=== PATIENT | female | born 1960 ===

== ENCOUNTER → 2020-10-03 12:36 | Outpatient (BNVA) | payer MEDICAID, SELFPAY | PROVIDERS: PCP Family Medicine; Visit Provider Nurse Practitioner Family | DX: M47.817 Spondylosis without myelopathy or radiculopathy, lumbosacral region (principal) | CPT/HCPCS: 99212 ==

== ENCOUNTER 2021-01-22 06:27 | Outpatient (REF) | payer MEDICAID, SELFPAY ==
--- NOTE | ~2021-01-22 | FL_ITS ---
EXAMINATION: XR FLUOROSCOPY WITH IMAGES CLINICAL INFORMATION: M47.817 - Spondylosis without myelopathy or radiculopathy COMPARISON: MRI lumbar spine 05/02/2020, radiographs lumbar spine 09/11/2016 TECHNIQUE: Fluoroscopy performed by Liya Maravilla NP. Fluoroscopy time: 0.7 minutes DAP: 11.6 Gycm2 Images: 6 FINDINGS: There are spinal needles overlying the bilateral outer neural foramen L3, L4, and L5. There is contrast seen in the nerve sheaths with some transforaminal epidural extension. No visible vascular communication. FL/FL guidance in treatment room IMPRESSION: Fluoroscopy for pain management procedures.
== END 2021-01-22 06:28 | disposition home or self-care (01) ==
LOC: HO.RADIR 06:27
PROVIDERS: Visit Provider Anesthesiology
DX: M47.817 Spondylosis without myelopathy or radiculopathy, lumbosacral region (principal)
CPT/HCPCS: 64493; 64494; Q9967

== ENCOUNTER → 2021-01-29 10:59 | Outpatient (BNVA) | payer MEDICAID, SELFPAY | PROVIDERS: PCP Family Medicine; Visit Provider Nurse Practitioner Family ==

== ENCOUNTER 2021-06-06 12:31 | Outpatient (REF) | payer MEDICAID, SELFPAY ==
--- NOTE | ~2021-06-06 | MM_ITS ---
EXAMINATION: MM SCREENING DIGITAL BREAST TOMOSYNTHESIS, BILATERAL CLINICAL INFORMATION: Screening. Asymptomatic. The lifetime risk of breast cancer based on the Tyrer-Cuzick Model is 4.4%. COMPARISON: Mammography: April 05, 2020 and studies dating back to April 19, 2014 TECHNIQUE: Digital breast tomosynthesis is performed in both the craniocaudal and mediolateral oblique views along with computer-aided detection (CAD). Synthesized 2D images are generated from the tomosynthesis. FINDINGS: There are scattered areas of fibroglandular density (ACR BI-RADS breast composition Category b). There are no significant masses, abnormal calcifications, or other abnormalities. MM/MM tomosynthesis screening BI IMPRESSION: There are no significant changes from prior study. ASSESSMENT: BI-RADS 1: Negative RECOMMENDATION: Routine annual mammography screening. This patient's information was entered into a reminder system with a target due date for their next mammogram.
== END 2021-06-06 12:32 | disposition home or self-care (01) ==
LOC: HO.MAMMO 12:31
PROVIDERS: Visit Provider Family Medicine
DX: Z12.31 Encounter for screening mammogram for malignant neoplasm of breast (principal)
CPT/HCPCS: 77063; 77067

== ENCOUNTER 2021-08-12 14:57 | Emergency (ER) | payer MEDICAID, SELFPAY ==
--- NOTE | ~2021-08-12 | XR_ITS ---
EXAMINATION: XR CHEST CLINICAL INFORMATION: Cough. COMPARISON: None TECHNIQUE: Frontal view of the chest was obtained. FINDINGS: No significant abnormality is noted involving the heart, lungs, mediastinum, bony thorax or soft tissues. XR/XR chest 1V IMPRESSION: Unremarkable chest examination.
[2021-08-12 15:01] VITALS: BP 175/96; PULSE 80; RESP 16; TEMP 36.7; O2SAT 98; BMI 37.0
--- NOTE | 2021-08-12 15:10 | ED.NAVMDI ---
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 Mode of arrival: EMS Limitations: no limitations History of Present Illness MD elicited complaint: nausea (body aches, cough) Pertinent past history: other (vaccinated x 1) Onset (ago): day(s) (2) Associated nausea: Yes Associated abdominal pain: No Location of pain: diffuse (has diffuse body aches) Radiation: diffuse Pain consistency: intermittent Severity: mild Quality: aching Exacerbating factors: none Relieving factors: none Associated symptoms: cough, loss of appetite, malaise, nausea/vomiting and weakness Related Data Home Medications Medication Instructions Recorded Confirmed abacavir 600 mg-lamivudine 300 mg 1 tab PO DAILY 10/03/20 10/03/20 tablet (Epzicom) aspirin 81 mg tablet,delayed 81 mg PO DAILY 10/03/20 10/03/20 release (Adult Aspirin Regimen) atorvastatin 40 mg tablet 40 mg PO BEDTIME 10/03/20 10/03/20 cholecalciferol (vitamin D3) 1,250 1,250 mcg PO QWEEK 10/03/20 10/03/20 mcg (50,000 unit) capsule clonazepam 0.5 mg tablet 0.5 mg PO DAILY 10/03/20 10/03/20 clonidine HCl 0.1 mg tablet 0.1 mg PO BEDTIME 10/03/20 10/03/20 duloxetine 60 mg capsule,delayed 60 mg PO BID 10/03/20 10/03/20 release (Cymbalta) glipizide 10 mg tablet 10 mg PO BID 10/03/20 10/03/20 lidocaine 5 % topical patch 1 patch TOPICAL DAILY 10/03/20 10/03/20 loratadine 10 mg capsule 10 mg PO DAILY 10/03/20 10/03/20 losartan 100 mg tablet 100 mg PO DAILY 10/03/20 10/03/20 melatonin 5 mg capsule 5 mg PO DAILY PRN cap 10/03/20 10/03/20 meloxicam 7.5 mg tablet 7.5 mg PO DAILY 10/03/20 10/03/20 metformin 500 mg tablet 500 mg PO BID 10/03/20 10/03/20 metoclopramide HCl 5 mg tablet 5 mg PO QIDACHS 10/03/20 10/03/20 (Reglan) metoprolol tartrate 25 mg tablet 25 mg PO BID 10/03/20 10/03/20 mirabegron 50 mg tablet,extended 50 mg PO DAILY 10/03/20 10/03/20 release 24 hr (Myrbetriq) oxybutynin chloride 15 mg 15 mg PO DAILY 10/03/20 10/03/20 tablet,extended release 24 hr pantoprazole 40 mg tablet,delayed 40 mg PO DAILY 10/03/20 10/03/20 release raltegravir 400 mg tablet 400 mg PO BID 10/03/20 10/03/20 (Isentress) verapamil 360 mg 24 hr 360 mg PO DAILY 10/03/20 10/03/20 capsule,extended release Previous Rx's Medication Instructions Recorded tolterodine 4 mg capsule,extended 4 mg PO BID 90 Days #180 cap 10/29/20 release 24 hr mirabegron 50 mg tablet,extended 50 mg PO DAILY #28 tab 01/15/21 release 24 hr (Myrbetriq) Allergies Allergy/AdvReac Type Severity Reaction Status Date / Time codeine [CODEINE] Allergy Intermediate DIZZY, Verified 01/22/21 11:11 itching Penicillins [PENICILLINS] Allergy Intermediate RASH Verified 01/22/21 11:11 Review of Systems Review of Systems: Constitutional : No Weight loss, No Fever, pos Chills, pos Fatigue, pos Malaise ENT/Mouth : No sore throat, No Rhinorrhea Eyes: No Eye Pain, No Swelling, No Redness Cardiovascular : No Chest Pain, No SOB, No Dyspnea on Exertion, No Orthopnea, No Edema, No Palpitations Respiratory : pos Cough, No Sputum, No Wheezing Gastrointestinal : pos Nausea, No Vomiting, No Diarrhea, No Constipation, No abdominal Pain, No Hematochezia, No Melena Genitourinary : No Dysuria, No Urinary Frequency, No Hematuria, Musculoskeletal : No joint pain, pos Myalgias, No Joint Swelling Skin : No Skin Lesions, No rash Neuro : pos Weakness, No Numbness, No Dizziness, No Headache Psych : No Anxiety/Panic, No Depression Heme/Lymph: No Bruising, No Bleeding,No Lymphadenopathy Endocrine : No Polyuria, No Polydipsia All other systems reviewed and are negative Gastrointestinal: Gastrointestinal: Reports nausea PMFSH Past Medical History Medical History HIV (human immunodeficiency virus infection) HTN (hypertension) Social History Social History Alcohol intake: unknown Patient Tobacco Use Status: Tobacco use Unknown Use of substances other than those prescribed or required for medical reasons: Unknown Advance Directives: No Advance Directives Information Provided: No Physical Exam Vital Signs: Vital Signs: Last Vital Signs Temp 99.2 F 08/12/21 19:12 Pulse 80 08/12/21 19:12 Resp 12 08/12/21 19:12 BP 175/93 H 08/12/21 19:12 Pulse Ox 97 08/12/21 19:12 BMI result Body Mass Index 37.0 Appearance: Alert. Oriented X3. No acute distress. Eyes: Pupils equal, round and reactive to light. ENT: Pharynx normal. Neck: Normal inspection. Neck supple. CVS: Normal heart rate and rhythm. Pulses normal. Respiratory: No respiratory distress. Breath sounds normal. Abdomen: Soft and non-tender. Skin: Skin warm and dry. Normal skin color. Normal skin turgor. Extremities: No lower extremity edema. No calf ttp Neuro: Oriented X 3. No motor deficit. No sensory deficit. Course Course Course Narrative: repeat trop flat plan for PT/CM given family's concern for falls at home and need for more help, no trauma reported patient is GCS 15 Patient placed in physician observation at 750pm. The indication for observation is that the patient needs more time to see PT/CM for assistance at home. At this time the patient is well developed well nourished, lungs clear, CV RRR, abd nontender, neuro is intact. MDM - Nausea/Vomiting/Diarrhea MDM Narrative Medical decision making narrative: 60 yo female with hx of arthritis and she reports well controlled HIV at this time she has received one dose of COVID vaccine - she is coming in with cough, maliase, fatigue, chills and nausea - no hypoxia not toxic in appearance will obtain basic labs, CXR, COVID swab, supportive care. Dispo per results and findings. Lab Data Result diagrams: 08/12/21 15:43 08/12/21 15:43 Labs: Lab Results 08/12/21 08/12/21 08/12/21 Range/Units 15:23 15:43 15:43 WBC 8.2 (4.8-10.8) X10*3/uL RBC 3.59 L (4.20-5.50) X10*6/uL Hgb 12.1 (12.0-16.0) g/dl Hct 34.7 L (37.0-47.0) % MCV 96.7 (80.0-98.0) fL MCH 33.7 H (27.0-33.0) pg MCHC 34.9 (31.0-35.0) g/dl RDW 13.8 (11.0-16.0) % Plt Count 275 (160-400) X10*3/uL MPV 10.5 (9.4-12.3) fL Immature Gran % (Auto) 0.4 (0.0-0.4) % Neut % (Auto) 48.2 (45-73) % Lymph % (Auto) 31.1 (20-40) % [place] % (Auto) 12.9 H (2-11) % Eos % (Auto) 6.7 H (0-4) % Baso % (Auto) 0.7 (0-2) % Lymph # (Auto) 2.6 (1.2-4.9) X10*3/uL [place] # (Auto) 1.1 (0.1-1.2) X10*3/uL Eos # (Auto) 0.6 H (0.0-0.4) X10*3/uL Baso # (Auto) 0.1 (0.0-0.2) X10*3/uL Abs Immat Gran (auto) 0.03 (0.00-0.03) X10*3/uL Absolute Neuts (auto) 4.0 (2.0-8.3) x10*3/uL Absolute Nucleated RBC 0.020 H (0.0-0.012) X10*3/uL Nucleated RBC % (auto) 0.2 (0.0-0.2) /100WBC Sodium 142 (135-145) mmol/L Potassium 2.9 L (3.3-5.1) mmol/L Chloride 104 (96-108) mmol/L Carbon Dioxide 29 (22-29) mmol/L Anion Gap 12 (12-20) BUN 10 (9-16) mg/dL Creatinine 0.99 (0.5-1.4) mg/dL Estim Creat Clear Calc 58.8 Estimated GFR 57 Random Glucose 280 H (60-115) mg/dL Calcium 9.1 (8.4-10.2) mg/dL Total Bilirubin 0.3 (0.0-1.0) mg/dL Direct Bilirubin < 0.2 (0.0-0.5) mg/dL AST 60 H (5-31) U/L ALT 73 H (0-31) U/L Alkaline Phosphatase 87 (39-117) U/L Troponin I High Sens (<3.5-17.0) ng/L Total Protein 6.9 (6.5-8.0) g/dL Albumin 3.9 (3.5-5.0) g/dL Lipase 69 (8-78) U/L COVID-19 ([facility]) Positive A (Negative) COVID-19 Clin Com See Note 08/12/21 08/12/21 Range/Units 15:43 19:18 WBC (4.8-10.8) X10*3/uL RBC (4.20-5.50) X10*6/uL Hgb (12.0-16.0) g/dl Hct (37.0-47.0) % MCV (80.0-98.0) fL MCH (27.0-33.0) pg MCHC (31.0-35.0) g/dl RDW (11.0-16.0) % Plt Count (160-400) X10*3/uL MPV (9.4-12.3) fL Immature Gran % (Auto) (0.0-0.4) % Neut % (Auto) (45-73) % Lymph % (Auto) (20-40) % [place] % (Auto) (2-11) % Eos % (Auto) (0-4) % Baso % (Auto) (0-2) % Lymph # (Auto) (1.2-4.9) X10*3/uL [place] # (Auto) (0.1-1.2) X10*3/uL Eos # (Auto) (0.0-0.4) X10*3/uL Baso # (Auto) (0.0-0.2) X10*3/uL Abs Immat Gran (auto) (0.00-0.03) X10*3/uL Absolute Neuts (auto) (2.0-8.3) x10*3/uL Absolute Nucleated RBC (0.0-0.012) X10*3/uL Nucleated RBC % (auto) (0.0-0.2) /100WBC Sodium (135-145) mmol/L Potassium (3.3-5.1) mmol/L Chloride (96-108) mmol/L Carbon Dioxide (22-29) mmol/L Anion Gap (12-20) BUN (9-16) mg/dL Creatinine (0.5-1.4) mg/dL Estim Creat Clear Calc Estimated GFR Random Glucose (60-115) mg/dL Calcium (8.4-10.2) mg/dL Total Bilirubin (0.0-1.0) mg/dL Direct Bilirubin (0.0-0.5) mg/dL AST (5-31) U/L ALT (0-31) U/L Alkaline Phosphatase (39-117) U/L Troponin I High Sens 10.0 9.9 (<3.5-17.0) ng/L Total Protein (6.5-8.0) g/dL Albumin (3.5-5.0) g/dL Lipase (8-78) U/L COVID-19 ([facility]) (Negative) COVID-19 Clin Com ECG Data Attestation: I personally reviewed and interpreted this ECG as follows: ECG interpretation date: 08/12/21 ECG interpretation time: 15:36 Interpretation: Rate: 79 Rhythm: NSR [place]: normal Normal P waves. Normal BLAINE. Normal QRS complex. ST T wave : no TATY, nonspecific qTC: normal prior studies: no acute ischemia The study has been interpreted contemporaneously by me. . Discharge Plan Discharge Clinical Impression: COVID-19, Acute hypokalemia Patient Disposition: Still a Patient Instructions: Hypokalemia (ED), COVID-19 (Coronavirus Disease 2019) (ED) Additional Instructions: return to ED for any worsening symptoms or concerns Prescriptions: No Action tolterodine 4 mg capsule,extended release 24hr 4 mg PO BID 90 Days Qty: 180 RF: 2 Myrbetriq 50 mg tablet extended release 24 hr 50 mg PO DAILY Qty: 28 RF: 3 clonidine HCl 0.1 mg tablet 0.1 mg PO BEDTIME RF: 0 pantoprazole 40 mg tablet,delayed release (DR/EC) 40 mg PO DAILY RF: 0 melatonin 5 mg capsule 5 mg PO DAILY PRNRF: 0 verapamil 360 mg capsule,ext rel. pellets 24 hr 360 mg PO DAILY RF: 0 duloxetine [Cymbalta] 60 mg capsule,delayed release(DR/EC) 60 mg PO BID RF: 0 clonazepam 0.5 mg tablet 0.5 mg PO DAILY RF: 0 oxybutynin chloride 15 mg tablet extended release 24 hr 15 mg PO DAILY RF: 0 metoprolol tartrate 25 mg tablet 25 mg PO BID RF: 0 Myrbetriq 50 mg tablet extended release 24 hr 50 mg PO DAILY RF: 0 aspirin [Adult Aspirin Regimen] 81 mg tablet,delayed release (DR/EC) 81 mg PO DAILY RF: 0 glipizide 10 mg tablet 10 mg PO BID RF: 0 metformin 500 mg tablet 500 mg PO BID RF: 0 losartan 100 mg tablet 100 mg PO DAILY RF: 0 cholecalciferol (vitamin D3) 1,250 mcg (50,000 unit) capsule 1,250 mcg PO QWEEK RF: 0 lidocaine 5 % adhesive patch,medicated 1 patch topical DAILY RF: 0 metoclopramide HCl [Reglan] 5 mg tablet 5 mg PO QIDACHS RF: 0 atorvastatin 40 mg tablet 40 mg PO BEDTIME RF: 0 loratadine 10 mg capsule 10 mg PO DAILY RF: 0 meloxicam 7.5 mg tablet 7.5 mg PO DAILY RF: 0 Isentress 400 mg tablet 400 mg PO BID RF: 0 abacavir-lamivudine [Epzicom] 600-300 mg tablet 1 tab PO DAILY RF: 0
--- NOTE | 2021-08-12 15:21 | ECG_ITS ---
Test Reason : NAUSEA Blood Pressure : / mmHG Vent. Rate : 079 BPM Atrial Rate : 079 BPM P-R Int : 144 ms QRS Dur : 070 ms QT Int : 418 ms P-R-T Axes : 053 019 047 degrees QTc Int : 479 ms Normal sinus rhythm Normal ECG When compared with ECG of 25-OCT-2018 21:33, No significant change was found Referred By: Allie Brower Electronically Signed By:DRISS MORGAN MD
[2021-08-12 15:32] VITALS: BP 154/95; PULSE 80; RESP 12; TEMP 37.1; O2SAT 97
[2021-08-12] MEDS: Ondansetron ODT 4 MG TAB.RAPDIS TRANSLINGU (15:36)
[2021-08-12 15:39] LABS: COVID-19 Test Positive (Negative)
[2021-08-12 15:48] LABS: MANUAL DIFF FLAG NO
[2021-08-12 15:49] LABS: Basophils Absolute Auto 0.1 X10*3/uL (0.0-0.2); Basophils Percent Auto 0.7 % (0-2); Eosinophils Absolute Auto 0.6 X10*3/uL (0.0-0.4); Eosinophils Percent Auto 6.7 % (0-4); Hematocrit 34.7 % (37.0-47.0); Hemoglobin 12.1 g/dl (12.0-16.0); Imm Gran Abs Auto 0.03 X10*3/uL (0.00-0.03); Imm Gran Pct Auto 0.4 % (0.0-0.4); Lymphocytes Absolute Auto 2.6 X10*3/uL (1.2-4.9); Lymphocytes Percent Auto 31.1 % (20-40); Mean Corpuscular HGB Conc 34.9 g/dl (31.0-35.0); Mean Corpuscular Hemoglobin 33.7 pg (27.0-33.0); Mean Corpuscular Volume 96.7 fL (80.0-98.0); Mean Platelet Volume 10.5 fL (9.4-12.3); Monocytes Absolute Auto 1.1 X10*3/uL (0.1-1.2); Monocytes Percent Auto 12.9 % (2-11); NRBC Pct Auto 0.2 /100WBC (0.0-0.2); Neutrophils Percent Auto 48.2 % (45-73); Platelet Count 275 X10*3/uL (160-400); Red Blood Count 3.59 X10*6/uL (4.20-5.50); Red Cell Distribution Width 13.8 % (11.0-16.0); White Blood Count 8.2 X10*3/uL (4.8-10.8)
[2021-08-12 16:13] LABS: Alanine Aminotransferase 73 U/L (0-31); Albumin Level 3.9 g/dL (3.5-5.0); Alkaline Phosphatase 87 U/L (39-117); Anion Gap 12 (12-20); Aspartate Amino Transferase 60 U/L (5-31); Bilirubin Direct < 0.2 mg/dL (0.0-0.5); Bilirubin Total 0.3 mg/dL (0.0-1.0); Blood Urea Nitrogen 10 mg/dL (9-16); Calcium 9.1 mg/dL (8.4-10.2); Carbon Dioxide 29 mmol/L (22-29); Chloride 104 mmol/L (96-108); Creatinine Clr Calc Pharmacy 58.8; Estimated Glomerular Filt Rate 57; Glucose Random 280 mg/dL (60-115); Lipase 69 U/L (8-78); Potassium 2.9 mmol/L (3.3-5.1); Sodium 142 mmol/L (135-145); Total Protein 6.9 g/dL (6.5-8.0)
--- NOTE | 2021-08-12 16:48 | PC.NURSE ---
mercydelfino friasz [phone] daughter in law reports the pt is often confused, dazed and not herself. per mercy the apartment she lives in is covered in trash, bugs and is filthy.
[2021-08-12] MEDS: Potassium Chloride/H20 10 MEQ/100 ML PIGGYBACK 100 MEQ IV ×2 (17:05→18:09)
[2021-08-12] MEDS: Potassium Chloride ER 20 MEQ TAB.ER.PRT 40 MEQ PO (17:05)
[2021-08-12 19:12] VITALS: BP 175/93; PULSE 80; RESP 12; TEMP 37.3; O2SAT 97
[2021-08-12 19:46] LABS: Troponin-I High Sensitivity 9.9 ng/L (<3.5-17.0)
[2021-08-12] MEDS: Acetaminophen 325 MG TABLET 650 MG PO (20:04)
--- NOTE | 2021-08-12 20:36 | MHC.CM.ED ---
Addendum entered by Norma Piña 08/12/21 21:03: Broadcasted referrals within 20 miles. Only 3 facilities willing to accept Covid 19 patients. Will wait for possible bed offer. Waiting for PT evaluation. CM to follow for d/c needs. Original Note: CM met with patient at request of Dr. Brower. Daughter in law called and expressed concerns regarding pt living situation, telling Dr. Brower that house was unkempt and that there were bugs in the house. CM met with patient with medical affairs leader, as pt is Lao speaking only. Pt is A&Ox3. Good historian. Pt was vaccinated with J&J vaccine.States her daughter, Dariana Perez is her GRAVITY METER OBSERVER and takes very good care of her. Pt has no complaints about her care or her living situation. Uses a cane. PCP is Dr. Carrie Vieira. No HCP on file. HCP reviewed, completed and signed per protocol. Copies given and uploaded into [employer] and [employer]. HCP/GRAVITY METER OBSERVER/daughter Dariana Perez ([phone]). Pt tells CM that she is weak and has fallen at home. Agreeable to PT. Aware that she will need to stay overnight for a PT evaluation in the morning. Pt also aware that placement for STR will be difficult due to her positive Covid status. Pt is aware that referrals may need to be made 50 miles away. Pt is not willing to go that far and will make a decision about STR in the morning. If something local is offered, she will consider. CM spoke with pt daughter, with her permission. Dariana is her mother's GRAVITY METER OBSERVER. She works for [employer] and has 29 hours/week, 14 whcih are at night. Dariana provides personal care and cares for the apartment. Per Dariana, her apartment is clean, but their is mold and peeling ceilings. She tells CM that her mother has section 8 housing and she is trying to get her mother into another apartment, but is not having much luck. Dariana states she has brought these issues up to the landlord. CM suggested she call [facility]. Dariana is aware that her mother completed a HCP and has copies. D/C plan is either STR if recommended by PT and is local or home. Dariana is willing to continue to care for her mother at home. CM to follow for d/c needs.
[2021-08-12 21:04] VITALS: BP 174/72; PULSE 75; RESP 14; TEMP 36.9; O2SAT 99
[2021-08-12] MEDS: ondansetron HCL 4 MG/2 ML VIAL IVPUSH (23:27)
[2021-08-12 23:28] VITALS: BP 144/66; PULSE 78; RESP 13; O2SAT 98
[2021-08-13 06:30] VITALS: BP 157/78; PULSE 76; RESP 16; O2SAT 98
[2021-08-13 07:14] VITALS: BP 165/90; PULSE 84; RESP 12; TEMP 36.9; O2SAT 98
--- NOTE | 2021-08-13 08:16 | MHC.CM.ED ---
Patient remains in ER. Physical therapy eval pending. Clinical updates sent to the following facilities: [facility], [place], [facility], [facility], [facility], [facility], [facility] and [facility]. Continue to monitor for d/c needs.
[2021-08-13 08:19] VITALS: BP 185/95; PULSE 78; RESP 14; TEMP 36.9; O2SAT 97
--- NOTE | 2021-08-13 09:26 | PHA.MEDREC ---
Pharmacy Consult ? Medication Reconciliation Pharmacy has completed the medication reconciliation. Patient is medbox patient from [facility]. Contacted the pharmacy to get updated list of medications in the medbox. Losartan is no longer active. Mary Kate Herzog, MyrnaD
--- NOTE | 2021-08-13 10:03 | MHC.CM.ED ---
Physical therapy eval completed. Short term rehab vs home with walker is being recommended. Clinical updates sent to facilities still following: [facility], [facility], and [facility]. Continue to monitor for d/c needs.
--- NOTE | 2021-08-13 10:55 | MHC.CM.ED ---
Addendum entered by Zaida Guevara 08/13/21 11:30: Received telephone call from patient's other daughter, Dariana. Patient and family agreeable to referral to [facility]. [facility] Original Note: Spoke with patient's daughterMonisha via telephone at [phone]. T/W explained short term rehab is being recommended. Also explained no beds are currently available within 30 miles of patient's home. Monisha feels patient can safely return home. Monisha agreeable to referral to [facility] for long term, physical therapy and occupational therapy. [facility] booked for noon. Med [facility] with chart. Monisha verbalized understanding. Patient, Skylar RN and Dr Brower aware. Continue to monitor for d/c needs.
[2021-08-13 11:36] VITALS: BP 180/88; PULSE 82; RESP 13; TEMP 36.9; O2SAT 99
[2021-08-13] MEDS: Metoprolol Tartrate 25 MG TABLET PO ×2 (12:03→20:26)
[2021-08-13 13:37] VITALS: BP 145/91; PULSE 72; RESP 13; TEMP 36.9; O2SAT 98
--- NOTE | 2021-08-13 14:04 | MHC.CM.ED ---
[facility] can offer a bed tomorrow, . MDS completed and sent to [facility]. Also sent to [facility] via [facility]. Continue to monitor for d/c needs.
[2021-08-13] MEDS: Aspirin Enteric Coated 81 MG TABLET.DR PO (15:34)
[2021-08-13] MEDS: clonazePAM 0.5 MG TABLET PO (15:34)
[2021-08-13] MEDS: DULoxetine HCl 60 MG CAPSULE.DR 120 MG PO (15:34)
[2021-08-13] MEDS: Cholecalciferol (Vitamin D3) 25 MCG TABLET PO (15:35)
[2021-08-13 17:40] VITALS: BP 174/96; PULSE 85; RESP 14; TEMP 36.9; O2SAT 96
[2021-08-13] MEDS: VerapamiL HCL SR 180 MG TABLET.ER 360 MG PO (17:43)
[2021-08-13] MEDS: Raltegravir Potassium 400 MG TABLET PO (17:43)
[2021-08-13] MEDS: glipiZIDE 10 MG TABLET PO (17:44)
[2021-08-13] MEDS: lamiVUDine 150 MG TABLET 300 MG PO (17:45)
[2021-08-13] MEDS: metFORMIN HCl 500 MG TABLET PO (17:51)
[2021-08-13] MEDS: Metoclopramide HCl 5 MG TABLET PO (20:21)
[2021-08-13] MEDS: cloNIDine HCL 0.1 MG TABLET PO (20:24)
[2021-08-13] MEDS: Melatonin 3 MG TABLET 6 MG PO (20:24)
[2021-08-13] MEDS: Atorvastatin Calcium 40 MG TABLET PO (20:26)
[2021-08-13] MEDS: NaPROXEN 250 MG TABLET PO (21:39)
[2021-08-14] VITALS: BP 160/93; PULSE 82; RESP 24; O2SAT 94
[2021-08-14 07:25] VITALS: BP 163/88; PULSE 85; RESP 16; O2SAT 98
[2021-08-14 07:43] LABS: Glucose, Whole Blood 195 mg/dL (60-115)
[2021-08-14] MEDS: Aspirin Enteric Coated 81 MG TABLET.DR PO (08:18)
[2021-08-14] MEDS: lamiVUDine 150 MG TABLET 300 MG PO (08:18)
[2021-08-14] MEDS: Loratadine 10 MG TABLET PO (08:18)
[2021-08-14] MEDS: DULoxetine HCl 60 MG CAPSULE.DR 120 MG PO (08:18)
[2021-08-14] MEDS: metFORMIN HCl 500 MG TABLET PO (08:18)
[2021-08-14] MEDS: Raltegravir Potassium 400 MG TABLET PO (08:18)
[2021-08-14] MEDS: VerapamiL HCL SR 180 MG TABLET.ER 360 MG PO (08:18)
[2021-08-14] MEDS: glipiZIDE 10 MG TABLET PO (08:18)
[2021-08-14] MEDS: Cholecalciferol (Vitamin D3) 25 MCG TABLET PO (08:18)
[2021-08-14] MEDS: Metoclopramide HCl 5 MG TABLET PO (08:18)
[2021-08-14] MEDS: Metoprolol Tartrate 25 MG TABLET PO (08:19)
[2021-08-14] MEDS: clonazePAM 0.5 MG TABLET PO (08:31)
--- NOTE | 2021-08-14 08:59 | MHC.CM.ED ---
[facility] is able to accept patient today. Patient can leave at 10am. [facility] booked. Med [facility] with chart. SPoke with Dariana via telephone at [phone].Dariana verbalized understanding and is agreeable to d/c plan. Patient, Lizbet GAY and Tosin BURGOS aware. Continue to monitor for d/c needs.
== END 2021-08-14 11:03 | disposition still patient (30) ==
PROVIDERS: Emergency Provider Emergency Medicine; PCP Family Medicine
DX: U07.1 COVID-19 (principal); R53.1 Weakness; E87.6 Hypokalemia; I10 Essential (primary) hypertension; B20 Human immunodeficiency virus [HIV] disease; Z79.82 Long term (current) use of aspirin; Z79.02 Long term (current) use of antithrombotics/antiplatelets; Z79.899 Other long term (current) drug therapy
CPT/HCPCS: 36415; 71045; 80048; 80076; 82947; 83690; 84484; 85025; 87635; 93005; 96365; 96366; 96375; 97161; 99285; J2405

== ENCOUNTER → 2021-10-08 14:19 | Outpatient (BNVA) | payer MEDICAID, SELFPAY | PROVIDERS: PCP Family Medicine; Referring Provider Family Medicine; Visit Provider Nurse Practitioner Family ==

== ENCOUNTER → 2022-01-22 19:54 | Outpatient (REF) | payer MEDICAID, SELFPAY | LOC: HO.SL 19:54 | PROVIDERS: PCP Family Medicine; Visit Provider Nurse Practitioner Family | DX: G47.19 Other hypersomnia (principal); R06.83 Snoring; G47.9 Sleep disorder, unspecified | CPT/HCPCS: 95810 ==

== ENCOUNTER 2022-06-05 12:49 | Outpatient (REF) | payer MEDICAID, SELFPAY ==
--- NOTE | 2022-06-05 09:45 | EMG_ITS ---
Right lower extremity was screen for peripheral neuropathy. Right tibial and peroneal motor studies were performed. Tibial H-reflex was obtained and superficial peroneal and sural sensory studies were performed. Needle examination was done. 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 There was no evidence of generalized neuropathy or radiculopathy. MD LOW Duque/JOAQUIN / [id number]
== END 2022-06-05 12:50 | disposition home or self-care (01) ==
LOC: HO.NEURO 12:49
PROVIDERS: PCP Family Medicine; Visit Provider Family Medicine
DX: M79.604 Pain in right leg (principal); M79.605 Pain in left leg; E11.9 Type 2 diabetes mellitus without complications
CPT/HCPCS: 95886; 95909

== ENCOUNTER 2022-06-09 11:38 | Outpatient (REF) | payer MEDICAID, SELFPAY ==
--- NOTE | ~2022-06-09 | MM_ITS ---
EXAMINATION: MM SCREENING DIGITAL BREAST TOMOSYNTHESIS, BILATERAL CLINICAL INFORMATION: Screening. Asymptomatic. The lifetime risk of breast cancer based on the Tyrer-Cuzick Model is 6%. COMPARISON: Mammography: 06/06/2021, 04/05/2020, 07/25/2019 TECHNIQUE: Digital breast tomosynthesis is performed in both the craniocaudal and mediolateral oblique views along with computer-aided detection (CAD). Synthesized 2D images are generated from the tomosynthesis. FINDINGS: There are scattered areas of fibroglandular density (ACR BI-RADS breast composition Category b). There are no significant masses, abnormal calcifications, or other abnormalities. Parenchymal pattern is similar to prior studies. There is no developing density or architectural abnormality. The axilla and skin contours are unremarkable. No significant changes. MM/MM tomosynthesis screening BI IMPRESSION: No mammographic evidence of malignancy. ASSESSMENT: BI-RADS 1: Negative RECOMMENDATION: Routine annual mammography screening. This patient's information was entered into a reminder system with a target due date for their next mammogram.
== END 2022-06-09 11:39 | disposition home or self-care (01) ==
LOC: HO.MAMMO 11:38
PROVIDERS: PCP Family Medicine; Visit Provider Family Medicine
DX: Z12.31 Encounter for screening mammogram for malignant neoplasm of breast (principal)
CPT/HCPCS: 77063; 77067

== ENCOUNTER 2023-01-02 12:28 | Outpatient (REF) | payer MEDICAID, SELFPAY ==
--- NOTE | ~2023-01-02 | XR_ITS ---
EXAMINATION: XR KNEE, RIGHT CLINICAL INFORMATION: Chronic bilateral knee pain. COMPARISON: None available. TECHNIQUE: Three views of the right knee. FINDINGS: Bones and soft tissues appear unremarkable. No fracture or joint effusion appreciated. Alignment is anatomic. Joint spaces are well maintained. No abnormal soft tissue calcification. XR/XR knee RT 3V IMPRESSION: Normal plain film examination of the right knee.
--- NOTE | ~2023-01-02 | XR_ITS ---
EXAMINATION: XR KNEE, LEFT CLINICAL INFORMATION: Chronic bilateral knee pain. COMPARISON: None available. TECHNIQUE: Three views of the left knee. FINDINGS: Bones and soft tissues appear unremarkable. No fracture or joint effusion appreciated. Alignment is anatomic. Joint spaces are well maintained. No abnormal soft tissue calcification. XR/XR knee LT 3V IMPRESSION: Normal plain film examination of the left knee.
== END 2023-01-02 12:29 | disposition home or self-care (01) ==
LOC: HO.XRAY 12:28
PROVIDERS: PCP Family Medicine; Visit Provider Family Medicine
DX: M79.604 Pain in right leg (principal); M79.605 Pain in left leg; M79.671 Pain in right foot; M79.672 Pain in left foot; M25.561 Pain in right knee; M25.562 Pain in left knee; G89.29 Other chronic pain
CPT/HCPCS: 73562

== ENCOUNTER 2023-02-17 13:33 | Outpatient (AMB) | payer MEDICAID, SELFPAY ==
--- NOTE | 2023-02-17 13:34 | A.OFFVIS_ITS ---
Intake Intake Visit Reasons: OAB/Incontinence Intake Note: New Patient presents for initial visit incontinence/OAB (previous patient of Dr Rocha) Urology Medications: none Blood thinners: Aspirin PVR:0 Polymer Chemist Required: Yes Accompanied by: Daughter Allergies codeine [CODEINE] Allergy (Intermediate, Verified 02/17/23 23:08) DIZZY, itching Penicillins [PENICILLINS] Allergy (Intermediate, Verified 02/17/23 23:08) RASH Medication List - Last Reconciled [facility]17/23 [facility] abacavir-lamivudine 600-300 mg (Epzicom) 1 tab PO DAILY aspirin (Adult Aspirin Regimen) 81 mg PO DAILY atorvastatin 40 mg PO BEDTIME cholecalciferol (vitamin D3) 1 tab PO QAM clonazepam 0.5 mg PO DAILY PRN clonidine HCl 0.1 mg PO BEDTIME dulaglutide (Trulicity) 0.75 mg subcut QWEEK duloxetine (Cymbalta) 120 mg PO DAILY gabapentin 300 mg PO glipizide 10 mg PO BIDAC loratadine 10 mg PO DAILY loratadine 10 mg PO QAM losartan 100 mg PO QAM melatonin 5 mg PO DAILY melatonin 5 mg PO BEDTIME meloxicam 7.5 mg PO DAILY MRX1 metformin 500 mg PO BIDWM metformin ER 1,000 mg PO metoclopramide HCl 10 mg PO BEDTIME metoclopramide HCl (Reglan) 5 mg PO TIDAC metoprolol tartrate 25 mg PO BID metoprolol tartrate 75 mg PO raltegravir (Isentress) 400 mg PO BID verapamil ER 360 mg PO DAILY HPI HPI Comments 2 History of Present Illness Details Darien is a very pleasant 62-year-old Polish-speaking female patient of who was accompanied by her daughter at today's visit. She has a past medical history of HIV, hypertension, vitamin-D deficiency, anxiety, diabetes, and seasonal allergies. She presents to the office today as a new patient for ongoing urinary issues and concerns. In discussion with the patient and her daughter today she reports many years ago to be following up with Dr. Payne for symptoms of urinary incontinence and overactive bladder. It appears she has trialed and failed oxybutynin in the past and had previously been on Myrbetriq and tolterodine however for unknown reasons had since stopped taking the medication. She reports over the last couple of years noting symptoms continue and worsen at times. She reports having had 5 vaginal deliveries in the past of average size babies. She reports some labors to have been long in some rapid. When asked she reports stress urinary incontinence with urinary frequency and urgency. She does report having had episodes of urinary urgency and incontinence if not near a bathroom. She also reports experiencing intermittent episodes of dysuria. In office urinalysis results reviewed with the patient today. PVR 0 mL. Discussed at length potential causes for urinary issues as well as importance of managing diabetes for improvement in urinary symptoms as well as overall health and well-being. Patient's daughter reports PCP to have started overactive bladder medication recently however is unsure what medication this is. She otherwise offers no issues or concerns at this time. [facility] Medical History HIV (human immunodeficiency virus infection) HTN (hypertension) Surgical History H/O esophagogastroduodenoscopy H/O total hysterectomy History of bladder suspension procedure History of cholecystectomy History of tubal ligation S/P excision of lipoma Social History Alcohol intake: current Patient Tobacco Use Status: Never used Tobacco Substance Use Type: Marijuana Advance Directives Date on File: 08/12/21 Review of Systems Const Reports as per HPI Eyes Reports no additional complaints ENT Reports no additional complaints Card Reports as per HPI Resp Reports no additional complaints GI Reports no additional complaints Reports as per HPI Musc Reports no additional complaints Psych Reports as per HPI Endo Reports as per HPI Aller/Immun Reports as per HPI Physical Exam Const General: cooperative, comfortable, no acute distress, well developed, alert and awake Nutritional Appearance: overweight Orientation/consciousness: patient oriented x3 Limitations: no limitations HEENT Head: Yes normal to inspection, Yes normocephalic and Yes atraumatic Ears: hearing grossly normal bilaterally Eyes General: appearance normal, both eyes and all related structures Neck Neck: Yes normal visual inspection and Yes trachea midline Chest Chest palpation & inspection: normal inspection of the chest Resp Effort & Inspection: able to speak in complete sentences Cardio Rate: regular rate GI Inspection: Yes normal to inspection General: Yes no CVA tenderness Back/Spine/Pelvis Back: no CVA tenderness Skin General skin exam: no rashes or lesions noted Neuro General: patient oriented x3 Extrem General: Yes normal to inspection Psych Appearance: grossly normal and well kempt Mental Status: mental status grossly normal Speech and movement: Clear speech present Affect: normal affect Attitude: cooperative Thought process: Normal thought process present Thought content: Normal thought content present Insight: Fair insight present (Psych) Judgement: Fair judgement present (Psych) Office Procedures Post Void Residual Post Residual Void Post Void Residual (PVR): 0 82093-Ttic Void Residual by ultrasound Results AMB Urinalysis, Automated UA Leukoctes 0 Nohemi/uL Last Edit by [facility] on 02/17/23 13:56 UA Nitrite Negative Last Edit by [facility] on 02/17/23 13:56 UA Urobilinogen 0.2 mg/dL Last Edit by [facility] on 02/17/23 13:56 UA Protein 15 mg/dL Last Edit by [facility] on 02/17/23 13:56 UA pH 6.0 Last Edit by [facility] on 02/17/23 13:56 UA Blood 0 Wes/uL Last Edit by [facility] on 02/17/23 13:56 UA Specific [place] 1.030 Last Edit by [facility] on 02/17/23 13:56 UA Ketone Negative Last Edit by [facility] on 02/17/23 13:56 UA Bilirubin 0 mg/dL Last Edit by [facility] on 02/17/23 13:56 UA Glucose 0 mg/dL Last Edit by [facility] on 02/17/23 13:56 Results Reviewed Results Reviewed: Laboratory Last Values Urine pH (Auto) 6.0 02/17/23 13:37 Specific [place] (Auto) 1.030 02/17/23 13:37 Urine Protein (Auto) 15 mg/dL 02/17/23 13:37 Glucose (UA)(Auto) 0 mg/dL 02/17/23 13:37 Urine Ketones (Auto) Negative 02/17/23 13:37 Urine Blood (Auto) 0 Wes/uL 02/17/23 13:37 Urine Nitrite (Auto) Negative 02/17/23 13:37 Urine Bilirubin (Auto) 0 mg/dL 02/17/23 13:37 Urine Urobilinogen (Auto) 0.2 mg/dL 02/17/23 13:37 Leukocyte Esterase (Auto) 0 Nohemi/uL 02/17/23 13:37 Assessment & Plan Assessment & Plan (1) Lower urinary tract symptoms: Code(s): R39.9 - Unspecified symptoms and signs involving the genitourinary system (2) Stress incontinence: Code(s): N39.3 - Stress incontinence (female) (male) Plan In office urinalysis results reviewed with the patient and her daughter today; as noted above. PVR 0 mL. Discussed obtaining retroperitoneal ultrasound for further assessment evaluation. Patient's daughter will call office with further clarification of what overactive bladder medications patient is currently taking. Discussed at length importance of managing diabetes for improvement in urinary symptoms as well as overall health and well-being. Discussed possible near future in office cystoscopy for further assessment evaluation. Follow-up in 6 weeks with imaging to be completed prior; or sooner with any issues, concerns, and or questions. Orders: Orders US retroperitoneal comp Today N39.3 - Stress incontinence (female) (male), R39.9 - Unspecified symptoms and signs involving the genitourinary system AMB Urinalysis Automated Today Z13.9 - Encounter for screening, unspecified AMB Post Void Residual by ultrasound Today Z13.9 - Encounter for screening, unspecified Patient Instructions: The patient had an opportunity to ask questions regarding the treatment plan. All questions were answered. Physical exam, labs, and imaging were discussed and reviewed in detail. As well as risks, benefits, and discussion of treatment choices. No major barriers to understanding were identified. The patient expressed understanding and agreement with the above treatment plan. The patient was made aware they should contact our office by phone for worsening of their current condition, the appearance of new symptoms, or with any questions or concerns. Compliance is encouraged with any medications and follow up testing that is ordered. It is a privilege to be allowed the opportunity to participate in? your urological care.? Again, if you have any questions or concerns If you have any questions or concerns please do not hesitate to contact me. The office is [phone]. This note is constructed using voice recognition software. While every effort has been made to ensure accuracy medical transcription editor errors may have been included. Yours sincerely, RORY Mills Coding Level of Care Code New Pt Level 3 (41107) Diagnoses Lower urinary tract symptoms R39.9 Stress incontinence N39.3 CPT Codes Post Residual Void - PVR CPT Code: 76238-Laag Void Residual by ultrasound ([id number])
== END 2023-02-17 14:51 | disposition home or self-care (01) ==
PROVIDERS: PCP Family Medicine; Visit Provider Nurse Practitioner Family
DX: R39.9 Unspecified symptoms and signs involving the genitourinary system (principal); N39.3 Stress incontinence (female) (male)
CPT/HCPCS: 99203

== ENCOUNTER → 2023-02-17 13:33 | Outpatient (BNVA) | payer MEDICAID, SELFPAY | PROVIDERS: PCP Family Medicine; Visit Provider Nurse Practitioner Family | DX: N39.3 Stress incontinence (female) (male) (principal); R39.9 Unspecified symptoms and signs involving the genitourinary system | CPT/HCPCS: 51798; 99203 ==

== ENCOUNTER 2023-05-05 10:42 | Outpatient (REF) | payer MEDICAID, SELFPAY ==
[2023-05-05 11:18] LABS: MANUAL DIFF FLAG NO
[2023-05-05 11:39] LABS: Basophils Absolute Auto 0.1 X10*3/uL (0.0-0.2); Basophils Percent Auto 0.9 % (0-2); Eosinophils Absolute Auto 0.5 X10*3/uL (0.0-0.4); Eosinophils Percent Auto 3.5 % (0-4); Hematocrit 37.6 % (37.0-47.0); Hemoglobin 12.4 g/dl (12.0-16.0); Imm Gran Abs Auto 0.08 X10*3/uL (0.00-0.03); Imm Gran Pct Auto 0.6 % (0.0-0.4); Lymphocytes Percent Auto 28.5 % (20-40); Mean Corpuscular Hemoglobin 33.5 pg (27.0-33.0); Mean Corpuscular Volume 101.6 fL (80.0-98.0); Mean Platelet Volume 11.3 fL (9.4-12.3); Monocytes Absolute Auto 0.8 X10*3/uL (0.1-1.2); Monocytes Percent Auto 6.1 % (2-11); Neutrophils Absolute Auto 8.4 x10*3/uL (2.0-8.3); Neutrophils Percent Auto 60.4 % (45-73); Platelet Count 315 X10*3/uL (160-400); Red Cell Distribution Width 14.4 % (11.0-16.0); White Blood Count 13.9 X10*3/uL (4.8-10.8)
[2023-05-05 13:08] LABS: Alanine Aminotransferase 16 U/L (0-31); Albumin Level 4.1 g/dL (3.5-5.0); Alkaline Phosphatase 90 U/L (39-117); Anion Gap 16 (12-20); Aspartate Amino Transferase 12 U/L (5-31); Bilirubin Total 0.3 mg/dL (0.0-1.0); Blood Urea Nitrogen 20 mg/dL (9-16); Calcium 9.5 mg/dL (8.4-10.2); Carbon Dioxide 22 mmol/L (22-29); Chloride 108 mmol/L (96-108); Estimated Glomerular Filt Rate > 60; Glucose Random 143 mg/dL (60-115); Potassium 3.9 mmol/L (3.3-5.1); Sodium 142 mmol/L (135-145); Total Protein 7.2 g/dL (6.5-8.0)
[2023-05-05 13:27] LABS: Folate 11.3 ng/mL (> or = 4.0); Vitamin B12 308 pg/mL (200-900)
[2023-05-07 07:43] LABS: Absolute CD3 Count 2968 cells/uL (840-3060); Absolute CD4 Count 1507 cells/uL (490-1740); Absolute CD8 Count 1530 cells/uL (180-1170); Absolute Lymphocytes 4219 cells/uL (850-3900); CD4 CD8 Ratio 0.99 (0.86-5.00); Percent CD3 Cells 70 % (57-85); Percent CD4 Cells 36 % (30-61); Percent CD8 Cells 36 % (12-42)
[2023-05-07 08:24] LABS: RPR Rapid Plasma Reagin NON-REACTIVE (NON-REACTIVE)
[2023-05-07 15:43] LABS: HIV RNA PCR Qn Copies 22 copies/mL (NOT DETECTED); HIV RNA PCR Qn Log Copies 1.34 (NOT DETECTED)
== END 2023-05-05 10:43 | disposition home or self-care (01) ==
LOC: HO.HHCL 10:42
PROVIDERS: Visit Provider Internal Medicine
DX: Z21 Asymptomatic human immunodeficiency virus [HIV] infection status (principal); R20.2 Paresthesia of skin
CPT/HCPCS: 36415; 80053; 82607; 82746; 84443; 85025; 86359; 86360; 86592; 87536

== ENCOUNTER 2023-05-07 16:00 | Outpatient (REF) | payer MEDICAID, SELFPAY ==
[2023-05-07 17:40] LABS: Appearance Urine Cloudy; Basophils Absolute Auto 0.1 X10*3/uL (0.0-0.2); Basophils Percent Auto 0.8 % (0-2); Color Urine Dark Yellow; Eosinophils Absolute Auto 0.4 X10*3/uL (0.0-0.4); Eosinophils Percent Auto 2.7 % (0-4); Glucose Urine UA Negative (Negative); Hematocrit 38.3 % (37.0-47.0); Hemoglobin 12.7 g/dl (12.0-16.0); Imm Gran Abs Auto 0.08 X10*3/uL (0.00-0.03); Imm Gran Pct Auto 0.5 % (0.0-0.4); Leukocyte Esterase Urine Trace (Negative); Lymphocytes Percent Auto 37.3 % (20-40); MANUAL DIFF FLAG SCAN; Mean Corpuscular HGB Conc 33.2 g/dl (31.0-35.0); Mean Corpuscular Hemoglobin 33.4 pg (27.0-33.0); Mean Corpuscular Volume 100.8 fL (80.0-98.0); Mean Platelet Volume 11.7 fL (9.4-12.3); Monocytes Absolute Auto 1.1 X10*3/uL (0.1-1.2); Monocytes Percent Auto 6.7 % (2-11); Neutrophils Absolute Auto 8.3 x10*3/uL (2.0-8.3); Nitrite Urine Negative (Negative); Platelet Count 309 X10*3/uL (160-400); Red Cell Distribution Width 14.5 % (11.0-16.0); SCAN SMEAR FLAG 1; Specific Gravity - Urine >= 1.030 (1.005-1.025); UMIC TRIGGER UA YES; Urine Blood Negative (Negative); Urine Ketones Trace mg/dL (Negative); Urine Protein 30 (1+) mg/dL (Neg-Trace)
[2023-05-07 17:58] LABS: Bacteria Urine 4+ (None Seen); Squamous Epithelial Cell Urine >20 /HPF (0-2)
[2023-05-07 18:04] LABS: Alanine Aminotransferase 16 U/L (0-31); Albumin Level 4.1 g/dL (3.5-5.0); Alkaline Phosphatase 86 U/L (39-117); Anion Gap 18 (12-20); Aspartate Amino Transferase 12 U/L (5-31); Bilirubin Total 0.2 mg/dL (0.0-1.0); Blood Urea Nitrogen 22 mg/dL (9-16); Calcium 10.1 mg/dL (8.4-10.2); Carbon Dioxide 22 mmol/L (22-29); Chloride 107 mmol/L (96-108); Estimated Glomerular Filt Rate 53; Glucose Random 145 mg/dL (60-115); Potassium 4.1 mmol/L (3.3-5.1); Sodium 143 mmol/L (135-145); Total Protein 7.3 g/dL (6.5-8.0)
[2023-05-07 18:09] LABS: SLIDE REVIEW VERIFIED
[2023-05-08 03:15] LABS: Syphilis Screen Nonreactive (Nonreactive)
[2023-05-10 12:09] LABS: HIV RNA PCR Qn Copies 63 copies/mL (NOT DETECTED)
[2023-05-11 08:39] LABS: Absolute CD3 Count 4679 cells/uL (840-3060); Absolute CD4 Count 2247 cells/uL (490-1740); Absolute CD8 Count 2589 cells/uL (180-1170); Absolute Lymphocytes 6178 cells/uL (850-3900); CD4 CD8 Ratio 0.87 (0.86-5.00); Percent CD3 Cells 76 % (57-85); Percent CD4 Cells 36 % (30-61); Percent CD8 Cells 42 % (12-42)
== END 2023-05-07 16:01 | disposition home or self-care (01) ==
LOC: HO.HHCL 16:00
PROVIDERS: Visit Provider Internal Medicine
DX: Z21 Asymptomatic human immunodeficiency virus [HIV] infection status (principal)
CPT/HCPCS: 36415; 80053; 81001; 85025; 86359; 86360; 86780; 87536

== ENCOUNTER 2023-09-01 09:54 | Outpatient (AMB) | payer MEDICAID, SELFPAY ==
[2023-09-01 09:59] VITALS: BP 143/80; PULSE 100; BMI 36.7
--- NOTE | 2023-09-01 09:59 | A.OFFVIS_ITS ---
Intake Vital Signs 3 09/01/23 09:59 Height 5 ft Weight 188 lb BMI 36.7 BP 143/80 H Blood Pressure Location Lt brachial Position Sitting Pulse 100 Intake Visit Reasons: [place] notes from 2019/GERD Intake Note: Patient presents to in office visit today for Colonoscopy screening. CC: Patient states when she eats she gets diarrhea, and vomiting. She reports onset of symptoms about a year ago. Patient also c/o abdominal bloating, and a lot of gas. Floorman Required: Yes Floorman Name: daughter Accompanied by: Daughter Allergies codeine [CODEINE] Allergy (Intermediate, Verified 09/01/23 10:03) DIZZY, itching Penicillins [PENICILLINS] Allergy (Intermediate, Verified 09/01/23 10:03) RASH HPI [facility] notes from 2019/GERD 2 HPI0 Details 60-year-old female here for a preprocedu ral meeting to discuss a screening colonoscopy. She was last seen by myself 12/2018 and last note is as follows: 1. Gastroparesis Start Reglan Tablet, 5 mg, 15 min to 1/2 hr ac, Orally, FOUR TIMES A DAY, 30 days, 30 day supply, Refills 3 2. RUQ pain LAB: URINALYSIS + MICROSCOPIC, CLEAN CATCH IMAGING: US ABD SHe sanchez been having trouble with stomach bloating and burping with a foul smell for a while. Still, she feels that her stomach problems are generally better with the carafate. Her bowels are moving normally, but she has a great deal of gas. She carries a dx of gastroparesis, and was on reglan in the past but it was stopped. She can not remember why. Her food may be delated in her stomach and fermenting, so I will restart this and consider if she needs digesteive enzymes for IBS. GASTRIC EMPTYING STUDY 2012 IMPRESSION: 1. Delayed gastric emptying with 33% still remaining in the stomach at 4 hours. LABS: Urinalysis showed trace of blood, no crystals, otherwise normal ULTRASOUND OF THE ABDOMEN 11/2018 IMPRESSION: Liver of diffuse increased echogenicity. This is nonspecific, but consistent with diffuse fatty infiltration. Otherwise, unremarkable abdominal ultrasound status post cholecystectomy. 12/26 VISIT Her daughter is translating from her [place] language of [place]. She is doing better with the Reglan, but she still has a bad taste in her mouth and frequent bloating. Her diarrhea continues post prandially. She is taking the carafate 2 pills a day, and this helps her stomach. I think we should increase the carafate to 4 pills/day. She still has pain in the LUQ and her perception of a lump. She says people tell me it may be my pancreas. I express doubt, as it does not swell out' to form lumps. SHe flinches even when I touch her skin lightly, so I think this is more c/w possible radicular thoracic spine pain than a pain of the GI organs. However, the fact that the pain has switched size may point to colon spasm. We will evaluate how she responds to increasing the Carafate to give her better control of her diarrhea. Because she still having a great deal of gas and bloating I think adding Creon would also be a good idea. I explained this to her and she is agreeable. She a has had improvement of her gastric/epigastric pain and in her reflux since starting the Reglan, and this is what she means when she says she is doing better. Assessments 1. Gastroparesis - K31.84 (Primary), Emp tying study was done in 2012 with 4hr retention @ 33%--normal < 10%, CONTROLLED on Reglan regimen. NO TDK symptoms. 2. Abdominal bloating - R14.0, Managing w/ avoiding dairy. 3. GERD (gastroesophageal reflux disease ) - K21.9, No reason for BID dosing of Pantoprazole., CONTROLLED well on BID use of Protonix BID and limits dietary irritants. 4. RUQ pain - R10.11 5. IBS (irritable bowel syndrome) - K58. 9, diarrhea Treatment 1. Gastroparesis Notes: She has had some improvement in her appetite and in her gastric pain with Reglan, continue she is not suffering any adverse effects particularly not tremor or anxiety. 2. Abdominal bloating Notes: This has not improved very much so we will start Creon and continue to evaluate her response. 3. GERD (gastroesophageal reflux disease ) Notes: Gerd and epigastric pain improved with Reglan. 4. RUQ pain Notes: This is switched to her left upper quadrant but she is exquisitely tender even with light touch to the skin. I think that this may be a radicular pain from her thoracic spine as having such exquisite tenderness with light touch would not be consistent with deep organ pain, but will see how she responds as we continue to regulate her diarrhea and decreased bowel spasm. 5. IBS (irritable bowel syndrome) Refill Sucralfate Tablet, 1 GM, take 4 tablets by mouth daily at noon, Oral, daily, 30, 120, Refills 3 Start Creon Capsule Delayed Release Particles, [id number] UNIT, 1 capsule, Orally, FOUR TIMES A DAY, 30 days, 120 Capsule, Refills 3 Notes: Improved but she still having postprandial diarrhea so we will increase her Carafate. 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 LABS: Laboratory Tests 05/05/23 05/07/23 05/07/23 10:48 16:06 16:06 WBC 16.0 H RBC 3.80 L Hgb 12.7 Hct 38.3 MCV 100.8 H MCH 33.4 H Plt Count 309 Estimated GFR 53 Total Bilirubin 0.2 AST 12 ALT 16 Alkaline Phosphata se 86 TSH 0.80 HIV-1 RNA copies/m L 63 H HIV-1 RNA logcopie s/mL 1.80 H TODAY'S VISIT Macedonian # DTR TRANSLATES PER PT REQUEST her daughter is supportive She is having trouble with her stomach she will have bloating and vomiting with eating. She also has diarrhea post prandially, is s/p cholecystectomy but is still eating high fat foods. She does not seem to be inclined to stop this even though I educate her this could be a major cause for her diarrhea. She will have diarrhea for 2 weeks, but sometimes will have hard stools. She is not taking the reglan, and this is likely the problem with the upper abdominal symptoms and vomiting. Will get this restarted at 10mg qidachs, watch for interaction with SSRI. In the past she did well on this and did not have any troubles Also trial of cholestyramine. Since she has epigastric pain will add a PPI, pantoprazole if possible. She has not had a colonoscopy since 2010! Will add EGD in case the above does not control her sx. Her asthma is well controlled and she denies cardiac problems. She has HIV and is on therapy. There are no prior problems with anesthesia or sedation. She does not know her family history for CRC etc. She says she was not raised with her family. ROV 3 weeks. [facility] Medical History (Updated 09/01/23 @ 10:26 by FILOMENA Graham) Gallstones Colon cancer screening HTN (hypertension) HIV (human immunodeficiency virus infection) Surgical History H/O colonoscopy H/O esophagogastroduodenoscopy S/P excision of lipoma History of bladder suspension procedure History of tubal ligation H/O total hysterectomy History of cholecystectomy Social History Alcohol intake: current Patient Tobacco Use Status: Never used Tobacco Substance Use Type: Marijuana Advance Directives Date on File: 08/12/21 Review of Systems Const Denies fatigue, Denies fever(s), Denies night sweats, Reports poor appetite and Denies weight loss ENT Reports Normal hearing present, Denies dental pain, Denies dysphagia, Denies hearing loss, Denies mouth pain, Denies odynophagia, Denies throat swelling, Denies tongue swelling and Reports other (Dentition adequate) Card Reports no additional complaints Resp Reports no additional complaints GI Reports abdominal pain, Denies melena, Reports bloating, Denies hematochezia, Denies constipation, Denies GI cramping, Denies dysphagia, Denies excessive flatus, Reports early satiety, Denies heartburn, Reports diarrhea, Reports nausea, Denies odynophagia, Reports vomiting and Denies hematemesis Skin/Breast Denies pruritus, Denies lesions, Denies rash and Denies jaundice Neuro Reports Normal hearing present and Denies Abnormal speech present Endo Denies fatigue Aller/Immun Denies throat swelling and Denies tongue swelling Physical Exam Vital Signs: Last Vital Signs Pulse 100 09/01/23 09:59 BP 143/80 H 09/01/23 09:59 BMI result Body Mass Index 36.7 Const General: cooperative, no acute distress, well developed and well groomed Nutritional Appearance: well nourished and obese Orientation/consciousness: oriented to person, oriented to place and oriented to time Limitations: language barrier HEENT Head: Yes normocephalic and Yes atraumatic Eyes General: appearance normal, both eyes and all related structures Pupils: Equal, round and reactive pupils present Neck Neck: Yes normal visual inspection and Yes no lymphadenopathy Thyroid: Thyroid normal Resp Effort & Inspection: normal respiratory effort and able to speak in complete sentences Auscultation: clear to auscultation bilaterally Cardio Rate: regular rate Rhythm: regular rhythm Heart sounds: Normal, physiologic split S2 sound present Peripheral pulses: radial pulses present and posterior tibial pulses present GI Inspection: No distended, Yes Abdominal panniculus present, Yes obesity and Yes scar Palpation (GI): Soft to palpation, nontender, no guarding, not rigid and No hepatosplenomegaly present Percussion: Yes normal to percussion Auscultation: normal bowel sounds Rectal Exam - Female: deferred Abdomen image: 2 1. surgical scars well healed 2. 3. Skin General skin exam: no rashes or lesions noted, turgor normal, skin not dry, no jaundice, No spider nevi and no striae Rashes: no rashes Nails: normal Neuro General: oriented to person, oriented to place and oriented to time Cranial nerves: Yes Equal, round and reactive pupils present and Yes Normal hearing present Speech: No Abnormal speech present Extrem General: Yes normal to inspection, No clubbing, No cyanosis and No edema Psych Appearance: grossly normal and well kempt Mental Status: mental status grossly normal Speech and movement: Normal speech and movement present Affect: normal affect Attitude: cooperative Thought process: Normal thought process present and not confabulating Thought content: Normal thought content present Insight: Limited insight present (Psych) Judgement: Limited judgement present (Psych) Results Reviewed Results Reviewed: Laboratory Tests 05/05/23 05/07/23 05/07/23 10:48 16:06 16:06 WBC 16.0 H RBC 3.80 L Hgb 12.7 Hct 38.3 MCV 100.8 H MCH 33.4 H Plt Count 309 Estimated GFR 53 Total Bilirubin 0.2 AST 12 ALT 16 Alkaline Phosphatase 86 TSH 0.80 HIV-1 RNA copies/mL 63 H HIV-1 RNA logcopies/mL 1.80 H Assessment & Plan Assessment & Plan (1) Gastroparesis: Comment: 2012 GASTRIC EMPTYING STUDY IMPRESSION: 1. Delayed gastric emptying with 33% still remaining in the stomach at 4 hours. 2. No obstruction or gastroesophageal reflux demonstrated on static images. 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 She also has diarrhea post prandially, is s/p cholecystectomy but is still eating high fat foods. She does not seem to be inclined to stop this even though I educate her this could be a major cause for her diarrhea. She will have diarrhea for 2 weeks, but sometimes will have hard stools. She is not taking the reglan, and this is likely the problem with the upper abdominal symptoms and vomiting. Will get this restarted at 10mg qidachs, watch for interaction with SSRI. In the past she did well on this and did not have any troubles Also trial of cholestyramine. Since she has epigastric pain will add a PPI, pantoprazole if possible. She has not had a colonoscopy since 2010! Will add EGD in case the above does not control her sx. Her asthma is well controlled and she denies cardiac problems. She has HIV and is on therapy. There are no prior problems with anesthesia or sedation. She does not know her family history for CRC etc. She says she was not raised with her family. ROV 3 weeks. Orders: Orders 2 EGD/[place] Combo - GI Use Only Today Z01.818 - Encounter for other preprocedural examination Medications: New 2 peg 3350-electrolytes 236-22.74-6.74 -5.86 gram (Golytely) until fecal effluent is clear; do not exceed a total volume of 2,000 mL 240 mL PO Q10M 1 day 4,000 mL 0RF Z12.11 - Encounter for screening for malignant neoplasm of colon metoclopramide HCl (Reglan) 10 mg PO QIDACHS 120 tabs 3RF K31.84 - Gastroparesis cholestyramine (with sugar) 4 gram administer w/meal; avoid other meds within 1hr before or 4-6hr after dose 4 grams PO BID 60 ea 5RF K91.5 - Postcholecystectomy syndrome pantoprazole (Protonix) 40 mg PO DAILY 30 days 30 tabs 6RF Coding Level of Care Code New Pt Level 3 (55156) Diagnoses Gastroparesis K31.84 Irritable bowel syndrome with diarrhea K58.0 Post-cholecystectomy syndrome K91.5 Pre-op examination Z01.818
== END 2023-09-01 10:41 | disposition home or self-care (01) ==
PROVIDERS: PCP Family Medicine; Visit Provider Nurse Practitioner
DX: K31.84 Gastroparesis (principal); K58.0 Irritable bowel syndrome with diarrhea; K91.5 Postcholecystectomy syndrome; Z01.818 Encounter for other preprocedural examination
CPT/HCPCS: 99203

== ENCOUNTER → 2023-09-01 09:54 | Outpatient (BNVA) | payer MEDICAID, SELFPAY | PROVIDERS: PCP Family Medicine; Visit Provider Nurse Practitioner | DX: Z01.818 Encounter for other preprocedural examination (principal); K31.84 Gastroparesis; K58.0 Irritable bowel syndrome with diarrhea; K91.5 Postcholecystectomy syndrome | CPT/HCPCS: 99212 ==

== ENCOUNTER 2023-10-27 07:32 | Day surgery (SDC) | payer MEDICAID, SELFPAY ==
[2023-10-27 07:37] VITALS: BP 197/81; PULSE 76; RESP 19; TEMP 36.1; O2SAT 97
[2023-10-27 07:42] VITALS: BMI 35.1
--- NOTE | 2023-10-27 07:43 | HO.ANESPROP2 ---
[facility] Active Problems Active Problems: All Active Problems (Updated 09/01/23 @ 10:26 by FILOMENA Graham) Pre-op examination (Acute) Post-cholecystectomy syndrome (Acute) Carpal tunnel syndrome (Acute) Trigger finger (Acute) Urinary incontinence (Acute) Lower urinary tract symptoms (Acute) Stress incontinence (Acute) Excessive daytime sleepiness (Acute) Snoring (Acute) Sleep disorder, unspecified (Acute) Migraines (Acute) Osteoarthritis of both hands (Acute) Depression (Acute) High cholesterol (Acute) Diabetes (Acute) Fibromyalgia (Acute) Irritable bowel syndrome with diarrhea (Acute) Gastroparesis (Acute) Asthma (Acute) Facet arthropathy, lumbosacral (Acute) COVID-19 (Acute) Past Medical History Medical History Gallstones Colon cancer screening HTN (hypertension) HIV (human immunodeficiency virus infection) Surgical History Surgical History H/O colonoscopy H/O esophagogastroduodenoscopy S/P excision of lipoma History of bladder suspension procedure History of tubal ligation H/O total hysterectomy History of cholecystectomy History of Problems with Anesthesia: No Social History Social History Alcohol intake: current Alcohol intake frequency: does not drink Patient Tobacco Use Status: Never used Tobacco Substance Use Type: Marijuana Are you DNR?: No Advance Directives: No Advance Directives Information Provided: Yes Advance Directives Date on File: 08/12/21 Meds Allergies Allergy/AdvReac Type Severity Reaction Status Date / Time codeine [CODEINE] Allergy Intermediate DIZZY, Verified 09/01/23 10:03 itching Penicillins [PENICILLINS] Allergy Intermediate RASH Verified 09/01/23 10:03 Home Medications Medication Instructions Recorded Confirmed Last Taken Type abacavir 600 mg-lamivudine 300 mg 1 tab PO DAILY 10/03/20 10/08/21 Unknown History tablet (Epzicom) aspirin 81 mg tablet,delayed 81 mg PO DAILY 10/03/20 10/08/21 Unknown History release (Adult Aspirin Regimen) atorvastatin 40 mg tablet 40 mg PO BEDTIME 10/03/20 10/08/21 Unknown History clonidine HCl 0.1 mg tablet 0.1 mg PO BEDTIME 10/03/20 10/08/21 Unknown History duloxetine 60 mg capsule,delayed 120 mg PO DAILY 10/03/20 10/08/21 Unknown History release (Cymbalta) glipizide 10 mg tablet 10 mg PO BIDAC 10/03/20 10/08/21 Unknown History loratadine 10 mg capsule 10 mg PO DAILY 10/03/20 10/08/21 Unknown History raltegravir 400 mg tablet 400 mg PO BID 10/03/20 10/08/21 Unknown History (Isentress) verapamil 360 mg 24 hr 360 mg PO DAILY 10/03/20 10/08/21 Unknown History capsule,extended release dulaglutide 0.75 mg/0.5 mL 0.75 mg subcut QWEEK 08/13/21 10/08/21 10/19/23 History subcutaneous pen injector (Trulicity) gabapentin 300 mg capsule 300 mg PO 02/17/23 Unknown History losartan 100 mg tablet 100 mg PO QAM blood pressure 02/17/23 Unknown History melatonin 5 mg tablet 5 mg PO BEDTIME 02/17/23 Unknown History metformin 500 mg tablet,extended 1,000 mg PO diabetes mellitus 02/17/23 Unknown History release 24 hr metoprolol tartrate 50 mg tablet 75 mg PO 02/17/23 Unknown History lorazepam 1 mg tablet 1 mg PO DAILY PRN 09/01/23 Unknown History tolterodine 2 mg capsule,extended 2 mg PO QAM 09/01/23 Unknown History release 24 hr Exam Airway Mallampati Class: III TM Dist: >3cm Neck ROM: Full Loose/Missing/Broken Teeth: Yes and Lower Heart: RRR Lungs: CTA Assessment and Plan Assessment Anesthesia Assessment: Anesthesia Plan Discussed and Chart Reviewed Final Anesthetic Review History of Problems with Anesthesia: No NPO: Yes ASA Class: III Final Preanesthetic Review: Meds/Allgs Chart Reviewed, Consent Obtained/Reviewed and Anes Risks/Benef Reviewed Patient Risk: Intermediate Procedure Risk: Intermediate Anesthetic Plan Anesthetic Plan: MAC: Disposition: Standard PACU
[2023-10-27 07:51] VITALS: BP 167/83
[2023-10-27 07:51] LABS: Glucose, Whole Blood 197 mg/dL (60-115)
--- NOTE | 2023-10-27 09:12 | MHC.SHP ---
Pre-Procedural Eval Section A - 24 Hr Update-Section A only Date of Service: 10/27/23 Section B - Complete if H&P > 30 days Chief Complaint: Abd pain, vomiting, diarrhea Details of Present Illness: Asthma HIV Hypertension High cholesterol Diabetes Migraines Osteoarthritis of the hands with trigger finger Carpal tunnel syndrome Urinary incontinence IBS-D Gastroparesis Lumbar sacral facet arthropathy Snoring without a diagnosis yet of SAMANTHA Depression/anxiety Fibromyalgia syndrome SURGICAL HISTORY Colonoscopy-2010 Gaffney= negative study EGD -2016 distal esophagitis focal antral gastritis Lipoma excision Bladder suspension surgery Tubal ligation Hysterectomy Cholecystectomy Allergies: Allergies Allergy/AdvReac Type Severity Reaction Status Date / Time codeine [CODEINE] Allergy Intermediate DIZZY, Verified 09/01/23 10:03 itching Penicillins [PENICILLINS] Allergy Intermediate RASH Verified 09/01/23 10:03 Review of Systems Review of Systems Comment: Ten point ROS negative except as above Exam Exam Comment: Gen appear: No acute distress HEENT: no icterus Chest: No overt resp distress Abd: soft, nontender, nondistended Psych: Stable affect, answering questions appropriately Neuro: A/Ox3 noted to move all extremities spontaneously Ext: no peripheral edema Plan I have reviewed the history and physical and performed a pertinent physical examination on my patient. No changes have occurred unless specified. Time Spent With Patient Time: Total time managing care of this patient today ____ minutes.
--- NOTE | 2023-10-27 09:56 | P.OP_ITS ---
Operative Note Operative Note Date of Service: 10/27/23 Narrative: Procedure: Upper endoscopy and colonoscopy Indication: Abd pain, vomiting, diarrhea Endoscopist: Lisbet Arreola MD Anesthesia Provider: Dr Lin Emanuel Anesthesia type: MAC Instrument: Olympus [id number] ?? EGD Procedure:?? The procedure, indications, preparation and potential complications were reviewed with the patient, who indicated understanding and gave written informed consent to proceed. A physical exam was performed. The endoscope was introduced through the mouth, and advanced to the duodenum. The mucosa was carefully examined on slow withdrawal of the endoscope. The patient tolerated the procedure well. There were no immediate complications.? ? EGD Findings:? * Esophagus:? Normal esophageal mucosa. The Z line was at 40 cm. There was a medium sized hiatal hernia noted with a diaphragmatic pinch at 43 cm. * Stomach:? Normal gastric mucosa. Retroflexion was performed in the cardia that showed grade hill III hiatal hernia. Random cold forceps biopsies were taken to rule out H Pylori. * Duodenum: Normal duodenal mucosa to the extent visualised. Cold forceps biopsies were taken from the duodenal bulb and 2nd portion of the duodenal to rule out celiac sprue. Colonoscopy Procedure: The patient was then turned for the colonoscopy. A digital rectal exam was performed which was abnormal for ext hemorrhoids. A distal attachemnt cap was affixed to the tip of the scope which was then inserted through the anus and advanced through the colon to the cecum at 75 cm. Appendiceal orifice and ileocecal valve were identified. Mucosa was carefully examined under high definition white light as the instrument was slowly withdrawn in a retrograde panoramic fashion. Retroflexion was performed in the rectum. The procedure was not difficult. There were no immediate obvious complications. The quality of the prep was BBPS: 1+1+2 = Inadequate Limitations: No limitations Colonoscopy Findings: Mucosa: Copious semi solid and liquid stool was noted in the entire colon which was attempted to flushed out but the visualization remained suboptimal vanessa in R colon. Protruding lesions: * Medium internal hemorrhoids Impressions:? * Normal esophagus * Hiatal hernia * Normal gastric mucosa (biopsy) * Normal duodenum (biopsy) * Poor prep * Hemorrhoids Recommendations: - Follow path results - Add fiber supplementation - Will need to be rebooked for colonoscopy within 6-12 months
[2023-10-27 10:00] VITALS: BP 131/75; PULSE 101; RESP 18; TEMP 36.4; O2SAT 99
[2023-10-27 10:15] VITALS: BP 158/93; PULSE 93; RESP 18; TEMP 36.4; O2SAT 99
--- NOTE | 2023-10-27 10:47 | PC.NURSE ---
Code C in progress and unable to print dc instructions. Instructions transcribed onto General Aftercare Instruction Sheet and pt brought to the dc area.
== END 2023-10-27 11:40 | disposition home or self-care (01) ==
PROVIDERS: PCP Family Medicine; Visit Provider Internal Medicine
PROC: (CPT 43239; principal; 2023-10-27 09:00)
DX: K29.80 Duodenitis without bleeding (principal); K44.9 Diaphragmatic hernia without obstruction or gangrene; K21.9 Gastro-esophageal reflux disease without esophagitis; Z12.11 Encounter for screening for malignant neoplasm of colon; K64.8 Other hemorrhoids; K31.84 Gastroparesis; R19.7 Diarrhea, unspecified; B20 Human immunodeficiency virus [HIV] disease; E11.9 Type 2 diabetes mellitus without complications; I10 Essential (primary) hypertension; E78.00 Pure hypercholesterolemia, unspecified
CPT/HCPCS: 43239; 45378; 82947; 88305; 88313; 88342; J2704

== ENCOUNTER → 2023-10-27 07:32 | Outpatient (BNV) | payer MEDICAID, SELFPAY | PROVIDERS: PCP Family Medicine; Visit Provider Internal Medicine | DX: R11.10 Vomiting, unspecified (principal); K44.0 Diaphragmatic hernia with obstruction, without gangrene; K29.80 Duodenitis without bleeding; R19.7 Diarrhea, unspecified; Z91.199 Patient's noncompliance with other medical treatment and regimen due to unspecified reason; K64.8 Other hemorrhoids | CPT/HCPCS: 43239; 45378 ==

== ENCOUNTER 2023-11-02 11:17 | Outpatient (REF) | payer MEDICAID, SELFPAY ==
[2023-11-02 13:59] LABS: MANUAL DIFF FLAG NO
[2023-11-02 14:10] LABS: Basophils Absolute Auto 0.1 X10*3/uL (0.0-0.2); Basophils Percent Auto 0.5 % (0-2); Eosinophils Absolute Auto 1.6 X10*3/uL (0.0-0.4); Eosinophils Percent Auto 10.5 % (0-4); Hematocrit 38.7 % (37.0-47.0); Hemoglobin 13.1 g/dl (12.0-16.0); Imm Gran Abs Auto 0.07 X10*3/uL (0.00-0.03); Imm Gran Pct Auto 0.5 % (0.0-0.4); Lymphocytes Absolute Auto 3.9 X10*3/uL (1.2-4.9); Lymphocytes Percent Auto 25.8 % (20-40); Mean Corpuscular HGB Conc 33.9 g/dl (31.0-35.0); Mean Corpuscular Hemoglobin 34.1 pg (27.0-33.0); Mean Corpuscular Volume 100.8 fL (80.0-98.0); Mean Platelet Volume 11.3 fL (9.4-12.3); Monocytes Absolute Auto 0.8 X10*3/uL (0.1-1.2); Monocytes Percent Auto 5.6 % (2-11); Neutrophils Absolute Auto 8.6 x10*3/uL (2.0-8.3); Neutrophils Percent Auto 57.1 % (45-73); Platelet Count 309 X10*3/uL (160-400); Red Blood Count 3.84 X10*6/uL (4.20-5.50); Red Cell Distribution Width 14.4 % (11.0-16.0); White Blood Count 15.1 X10*3/uL (4.8-10.8)
[2023-11-02 14:42] LABS: Alanine Aminotransferase 18 U/L (0-31); Albumin Level 3.9 g/dL (3.5-5.0); Alkaline Phosphatase 114 U/L (39-117); Anion Gap 14 (12-20); Aspartate Amino Transferase 13 U/L (5-31); Bilirubin Total 0.4 mg/dL (0.0-1.0); Blood Urea Nitrogen 14 mg/dL (9-16); Calcium 9.8 mg/dL (8.4-10.2); Carbon Dioxide 26 mmol/L (22-29); Chloride 106 mmol/L (96-108); Estimated Glomerular Filt Rate > 60; Glucose Random 159 mg/dL (60-115); Potassium 3.8 mmol/L (3.3-5.1); Sodium 142 mmol/L (135-145); Total Protein 7.3 g/dL (6.5-8.0)
[2023-11-03 05:03] LABS: ~Hepatitis C Antibody Nonreactive (Nonreactive)
[2023-11-04 07:13] LABS: HIV RNA PCR Qn Copies <20 DETECTED copies/mL (NOT DETECTED); HIV RNA PCR Qn Log Copies <1.30 DETECTED (NOT DETECTED)
[2023-11-04 10:38] LABS: Absolute CD3 Count 2993 cells/uL (840-3060); Absolute CD4 Count 1472 cells/uL (490-1740); Absolute CD8 Count 1579 cells/uL (180-1170); Absolute Lymphocytes 3874 cells/uL (850-3900); CD4 CD8 Ratio 0.93 (0.86-5.00); Percent CD3 Cells 77 % (57-85); Percent CD4 Cells 38 % (30-61); Percent CD8 Cells 41 % (12-42)
[2023-11-05 07:48] LABS: TS Negative Control Passed; TS Panel A 0; TS Panel B 0; TS Positive Control Passed; TSpotTB Negative (Negative)
== END 2023-11-02 11:18 | disposition home or self-care (01) ==
LOC: HO.HHCL 11:17
PROVIDERS: Visit Provider Internal Medicine
DX: Z21 Asymptomatic human immunodeficiency virus [HIV] infection status (principal)
CPT/HCPCS: 36415; 80053; 85025; 86359; 86360; 86481; 86803; 87536

== ENCOUNTER 2023-11-10 12:05 | Outpatient (AMB) | payer MEDICAID, SELFPAY ==
--- NOTE | 2023-11-10 12:08 | A.OFFVIS_ITS ---
Vital Signs 11/10/23 12:15 Height 5 ft 2 in Weight 184 lb BMI 33.7 BP 133/87 Blood Pressure Location Lt brachial Position Sitting Pulse 92 Intake Visit Reasons: s/p egd/colon Intake Note: Patient follow up for EGD/Colonoscopy screening. Patient cc: N/V, diarrhea, abdominal pain with bloating, acid reflex with burning sensation. Denies any other GI issues. 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 Delayed gastric emptying with 33% still remaining in the stomach at 4 hours. 2. No obstruction or gastroesophageal reflux demonstrated on static images. Code(s): K31.84 - Gastroparesis (2) Irritable bowel syndrome with diarrhea: Code(s): K58.0 - Irritable bowel syndrome with diarrhea (3) Post-cholecystectomy syndrome: Code(s): K91.5 - Postcholecystectomy syndrome (4) Pre-op examination: Code(s): Z01.818 - Encounter for other preprocedural examination Plan [place]ovan # DTR TRANSLATES PER PT REQUEST her daughter is supportive She is having trouble with her stomach she will have bloating and vomiting with eating. She also has diarrhea post prandially, is s/p cholecystectomy but is still eating high fat foods. She does not seem to be inclined to stop this even though I educate her this could be a major cause for her diarrhea. She will have diarrhea for 2 weeks, but sometimes will have hard stools. She is not taking the reglan, and this is likely the problem with the upper abd ominal symptoms and vomiting. Will get this restarted at 10mg qidachs, watch for interaction with SSRI. In the past she did well on this and did not have any troubles Also trial of cholestyramine. Since she has epigastric pain will add a PPI, pantoprazole if possible. She has not had a colonoscopy since 2010! Will add EGD in case the above does not control her sx. Her asthma is well controlled and she denies cardiac problems. She has HIV and is on therapy. There are no prior problems with anesthesia or sedation. She does not know her family history for CRC etc. She says she was not raised with her family. ROV 3 weeks. Orders: Orders EGD/Benedict Combo - GI Use Only Today Z01.818 - Encounter for other preprocedural examination Medications: New peg 3350-electrolytes 236-22.74-6.74 -5.86 gram (Golytely) until fecal effluent is clear; do not exceed a total volume of 2,000 mL 240 mL PO Q10M 1 day 4,000 mL 0RF Z12.11 - Encounter for screening for malignant neoplasm of colon metoclopramide HCl (Reglan) 10 mg PO QIDACHS 120 tabs 3RF K31.84 - Gastroparesis cholestyramine (with sugar) 4 gram administer w/meal; avoid other meds within 1hr before or 4-6hr after dose 4 grams PO BID 60 ea 5RF K91.5 - Postcholecystectomy syndrome pantoprazole (Protonix) 40 mg PO DAILY 30 days 30 tabs 6RF EGD/COLONOSCOPY 10/27/23 EGD Findings:? * Esophagus:? Normal esophageal mucosa. The Z line was at 40 cm. There was a medium sized hiatal hernia noted with a diaphragmatic pinch at 43 cm. * Stomach:? Normal gastric mucosa. Retroflexion was performed in the cardia that showed grade hill III hiatal hernia. Random cold forceps biopsies were taken to rule out H Pylori. * Duodenum: Normal duodenal mucosa to the extent visualised. Cold forceps biopsies were taken from the duodenal bulb and 2nd portion of the duodenal to rule out celiac sprue. Protruding lesions: * Medium internal hemorrhoids Impressions:? * Normal esophagus * Hiatal hernia * Normal gastric mucosa (biopsy) * Normal duodenum (biopsy) * Poor prep * HemorrhoidsRecommendations: - Follow path results - Add fiber supplementation - Will need to be rebooked for colonoscopy within 6-12 months BIOPSY Received: 10/27/23 Diagnosis A. Duodenum, biopsy: Chronic inactive duodenitis. B. Stomach, random, biopsy: Oxyntic mucosa with mild chronic inactive inflammation; no Helicobacter organisms seen TODAY'S VISIT Moldovan # dtr translates per pt request She was not clear for the colonoscopy, they say that she did do clear liquids. I will have her take the bisacodyl 3 night before along with the PEG prep. The procedure was well tolerated. The results were explained and the patient is agreeable to the follow-up interval as stated. The bowel pattern has returned to normal. Education was provided to tell any 1st degree relatives about their findings to be sure that they are screened by age 45. Educated that they will be put on a recall list when it is time for their repeat scope but should they move out of state or away from the hospital they will need to remember along with their primary to repeat the procedure in a timely fashion to avoid any adverse complications. She did not yet start the cholestyramine as she thought it was part of the colon prep. ROV 6 weeks to eval cholestyramine. [facility] Medical History (Updated 12/08/23 @ 17:07 by FILOMENA Graham) Pre-op examination Urinary incontinence Lower urinary tract symptoms COVID-19 Gallstones Colon cancer screening HTN (hypertension) HIV (human immunodeficiency virus infection) Surgical History H/O colonoscopy H/O esophagogastroduodenoscopy S/P excision of lipoma History of bladder suspension procedure History of tubal ligation H/O total hysterectomy History of cholecystectomy Social History Alcohol intake: current Alcohol intake frequency: does not drink Patient Tobacco Use Status: Never used Tobacco Substance Use Type: Marijuana Advance Directives Date on File: 08/12/21 Review of Systems Const Denies fatigue, Denies fever(s), Denies night sweats, Denies poor appetite and Denies weight loss ENT Reports Normal hearing present, Denies dental pain, Denies dysphagia, Denies he aring loss, Denies mouth pain, Denies odynophagia, Denies throat swelling, Denies tongue swelling and Reports other (Dentition adequate) Card Reports no additional complaints Resp Reports no additional complaints GI Details: Denies abdominal pain, Denies melena, Denies bloating, Denies hematochezia, Denies constipation, Denies GI cramping, Denies dysphagia, Denies excessive flatus, Reports early satiety, Reports heartburn, Reports diarrhea, Denies nausea, Denies odynophagia, Denies vomiting and Denies hematemesis Skin/Breast Denies pruritus, Denies lesions, Denies rash and Denies jaundice Neuro Reports Normal hearing present and Denies Abnormal speech present Endo Denies fatigue Aller/Immun Denies throat swelling and Denies tongue swelling Physical Exam Vital Signs: Last Vital Signs Pulse 92 11/10/23 12:15 BP 133/87 11/10/23 12:15 BMI result Body Mass Index 33.7 Const General: cooperative, no acute distress, well developed and well groomed Nutritional Appearance: well nourished and obese Orientation/consciousness: oriented to person, oriented to place and oriented to time Limitations: language barrier HEENT Head: Yes normocephalic and Yes atraumatic Eyes General: appearance normal, both eyes and all related structures Pupils: Equal, round and reactive pupils present Neck Neck: Yes normal visual inspection and Yes no lymphadenopathy Thyroid: Thyroid normal Resp Effort & Inspection: normal respiratory effort and able to speak in complete sentences Auscultation: clear to auscultation bilaterally Cardio Rate: regular rate Rhythm: regular rhythm Heart sounds: Normal, physiologic split S2 sound present Peripheral pulses: radial pulses present and posterior tibial pulses present GI Inspection: No distended, No Abdominal panniculus present and Yes obesity Palpation (GI): Soft to palpation, nontender, no guarding, not rigid and No hepatosplenomegaly present Percussion: Yes normal to percussion Auscultation: normal bowel sounds Rectal Exam - Female: deferred Skin General skin exam: no rashes or lesions noted, turgor normal, skin not dry, no jaundice, No spider nevi and no striae Rashes: no rashes Nails: normal Neuro General: oriented to person, oriented to place and oriented to time Cranial nerves: Yes Equal, round and reactive pupils present and Yes Normal hearing present Speech: No Abnormal speech present Extrem General: Yes normal to inspection, No clubbing, No cyanosis and No edema Psych Appearance: grossly normal and well kempt Mental Status: mental status grossly normal Speech and movement: Normal speech and movement present Affect: normal affect Attitude: cooperative Thought process: Normal thought process present and not confabulating Thought content: Normal thought content present Insight: Limited insight present (Psych) Judgement: Limited judgement present (Psych) Results Reviewed Results Reviewed: EGD/COLONOSCOPY 10/27/23 EGD Findings:? * Esophagus:? Normal esophageal mucosa. The Z line was at 40 cm. There was a medium sized hiatal hernia noted with a diaphragmatic pinch at 43 cm. * Stomach:? Normal gastric mucosa. Retroflexion was performed in the cardia that showed grade hill III hiatal hernia. Random cold forceps biopsies were taken to rule out H Pylori. * Duodenum: Normal duodenal mucosa to the extent visualised. Cold forceps biopsies were taken from the duodenal bulb and 2nd portion of the duodenal to rule out celiac sprue. Protruding lesions: * Medium internal hemorrhoids Impressions:? * Normal esophagus * Hiatal hernia * Normal gastric mucosa (biopsy) * Normal duodenum (biopsy) * Poor prep * HemorrhoidsRecommendations: - Follow path results - Add fiber supplementation - Will need to be rebooked for colonoscopy within 6-12 months BIOPSY Received: 10/27/23 Diagnosis A. Duodenum, biopsy: Chronic inactive duodenitis. B. Stomach, random, biopsy: Oxyntic mucosa with mild chronic inactive inflammation; no Helicobacter organisms seen Assessment & Plan Assessment & Plan (1) Post-cholecystectomy syndrome: Code(s): K91.5 - Postcholecystectomy syndrome Category: Medical (2) Irritable bowel syndrome with diarrhea: Code(s): K58.0 - Irritable bowel syndrome with diarrhea Category: Medical (3) Gastroparesis: Comment: 2012 GASTRIC EMPTYING STUDY IMPRESSION: 1. Delayed gastric emptying with 33% still remaining in the stomach at 4 hours. 2. No obstruction or gastroesophageal reflux demonstrated on static images. Code(s): K31.84 - Gastroparesis Category: Medical (4) Pre-op examination: Code(s): Z01.818 - Encounter for other preprocedural examination Category: Medical Plan Moldovan # dtr translates per pt request She was not clear for the colonoscopy, they say that she did do clear liquids. I will have her take the bisacodyl 3 night before along with the PEG prep. The procedure was well tolerated. The results were explained and the patient is agreeable to the follow-up interval as stated. The bowel pattern has returned to normal. Education was provided to tell any 1st degree relatives about their findings to be sure that they are screened by age 45. Educated that they will be put on a recall list when it is time for their repeat scope but should they move out of state or away from the hospital they will need to remember along with their primary to repeat the procedure in a timely fashion to avoid any adverse complications. She did not yet start the cholestyramine as she thought it was part of the colon prep. She continues on her metoclopramide and pantoprazole with good control of these symptoms ROV 6 weeks to eval cholestyramine. Orders: Orders Colonoscopy - GI Use Only 11/10/23 Medications: New bisacodyl (Dulcolax (bisacodyl)) 2 tabs qhs every night 3 days prior to colonoscopy orally bedtime; 8 tabs 0RF 3 days Refilled 2 peg 3350-electrolytes 236-22.74-6.74 -5.86 gram (Golytely) until fecal effluent is clear; do not exceed a total volume of 2,000 mL 240 mL PO Q10M 4,000 mL 0RF 1 day Z12.11 - Encounter for screening for malignant neoplasm of colon metoclopramide HCl (Reglan) 10 mg PO QIDACHS 120 tabs 6RF K31.84 - Gastroparesis pantoprazole (Protonix) 40 mg PO DAILY 30 tabs 6RF 30 days Coding Level of Care Code Est Pt Level 4 (51224) Diagnoses Post-cholecystectomy syndrome K91.5 Irritable bowel syndrome with diarrhea K58.0 Gastroparesis K31.84 Pre-op examination Z01.818
[2023-11-10 12:15] VITALS: BP 133/87; PULSE 92; BMI 33.7
== END 2023-11-10 13:20 | disposition home or self-care (01) ==
PROVIDERS: PCP Family Medicine; Visit Provider Nurse Practitioner
DX: K91.5 Postcholecystectomy syndrome (principal); K58.0 Irritable bowel syndrome with diarrhea; K31.84 Gastroparesis; Z01.818 Encounter for other preprocedural examination
CPT/HCPCS: 99214

== ENCOUNTER → 2023-11-10 12:05 | Outpatient (BNVA) | payer MEDICAID, SELFPAY | PROVIDERS: PCP Family Medicine; Visit Provider Nurse Practitioner | DX: Z01.818 Encounter for other preprocedural examination (principal); K91.5 Postcholecystectomy syndrome; K58.0 Irritable bowel syndrome with diarrhea; K31.84 Gastroparesis | CPT/HCPCS: 99212 ==

== ENCOUNTER 2023-12-04 18:37 | Outpatient (REF) | payer MEDICAID, SELFPAY ==
--- NOTE | ~2023-12-04 | MR_ITS ---
EXAMINATION: MR KNEE WITHOUT CONTRAST, RIGHT CLINICAL INFORMATION: Acute knee pain no injury COMPARISON: X-ray the right knee December 2022 TECHNIQUE: MRI of the knee without contrast was performed using routine sequences on a high-field scanner. FINDINGS: MENISCI: Medial Meniscus: Intact Lateral Meniscus: Intact LIGAMENTS: Cruciate: Intact Collateral: This some subtle heterogeneous increased signal and thickening of the proximal medial collateral ligament compatible with a partial tear likely subacute. Lateral ligaments intact. EXTENSOR MECHANISM: Intact ARTICULAR CARTILAGE/BONE: Patellofemoral Compartment: There is nonuniform up to high-grade cartilage loss and/or heterogeneity in the medial facet and median ridge of the patella with associated subchondral cystic change. Minimal cartilage heterogeneity the medial trochlea. Overall mild to moderate patellofemoral arthrosis . Medial Compartment: Small marginal osteophytes. Mild cartilage heterogeneity of the weightbearing femoral articular surface.. Overall mild arthrosis Lateral Compartment: Normal JOINT FLUID AND BURSAE: Normal MR/MR knee RT wo con IMPRESSION: 1. Partial tear of the proximal medial collateral ligament likely subacute. 2. Mild to moderate patellofemoral arthrosis. 3. Mild medial compartment arthrosis.
== END 2023-12-04 18:38 | disposition home or self-care (01) ==
LOC: HO.MRI 18:37
PROVIDERS: PCP Family Medicine; Visit Provider Family Medicine
DX: M25.561 Pain in right knee (principal)
CPT/HCPCS: 73721

== ENCOUNTER 2023-12-08 13:34 | Outpatient (REF) | payer MEDICAID, SELFPAY ==
--- NOTE | ~2023-12-08 | MM_ITS ---
EXAMINATION: BONE DENSITOMETRY CLINICAL INDICATION: Postmenopausal. COMPARISON: Previous BD dated 01/30/2015 and baseline BD dated 02/27/2009. TECHNIQUE: Using a Tutto DXA System (software version: 13.1) manufactured by [employer], dual-energy x-ray absorptiometry was performed of the lumbar spine and left hip. The images are of good technical quality. Summary results are attached. FINDINGS: LEFT FEMUR, NECK: Current: BMD 0.796 g/cm2, Z-score -0.8, T-score -1.7, osteopenia. Prior: BMD 0.892 g/cm2. Baseline: BMD 0.947 g/cm2. LEFT FEMUR, TOTAL: Current: BMD 1.047 g/cm2, Z-score 1.0, T-score 0.3, normal, 1.6% decrease from previous, 6.4% decrease from baseline (<5% change is not significant). Prior: BMD 1.064 g/cm2. Baseline: BMD 1.118 g/cm2. AP SPINE L1-L4: Current: BMD 1.100 g/cm2, Z-score 0.2, T-score -0.7, normal, 0.5% increase from previous, 0.7% increase from baseline (<5% change is not significant). Prior: BMD 1.094 g/cm2. Baseline: BMD 1.092 g/cm2. IDENTIFIED RISK FACTORS: Early menopause, hysterectomy, bilateral oophorectomy, osteoporosis, secondary osteoporosis (type 1 diabetes). HISTORY OF FRACTURE: None listed. MEDICATIONS: Vitamin D. MM/XR DEXA axial skeleton IMPRESSION: 1. DIAGNOSIS: Osteopenia based on the lowest T-score value of -1.7 in the femoral neck applying World Health Organization criteria. 2. 10-YEAR FRACTURE RISK PREDICTION, FRAX: Major osteoporotic fracture (clinical spine, forearm, hip or shoulder) 4.8%. Hip fracture 0.5%. 3. Treatment Recommendations: NOF guidelines recommend consideration for treatment in postmenopausal women and men age 50 and older presenting with the following: -A hip or vertebral (clinical or morphometric) fracture. -T-score less than or equal to -2.5 at the femoral neck or spine after appropriate evaluation to exclude secondary causes. -Low bone mass at the hip or spine and a 10-year fracture probability by FRAX of greater than or equal to 3% for hip fracture or greater than or equal to 20% for major osteoporotic fracture based on the [place] adapted WHO algorithm. 4. Other Recommendations: All treatment decisions require clinical judgment and consideration of individual patient factors, including patient preferences, comorbidities, previous drug use, risk factors not captured in the FRAX model (e.g. frailty, falls, vitamin D deficiency, increased bone turnover, interval significant decline in bone density) and possible under or overestimation of fracture risk by FRAX. Additional medical evaluation for secondary cause of low bone mineral density may be appropriate. FUTURE SCAN RECOMMENDATION: People with diagnosed cases of osteoporosis or at high risk for fracture should have regular bone mineral density tests. For patients eligible for Medicare, routine testing is allowed once every 2 years. The testing frequency can be increased to one year for patients who have rapidly progressing disease, those who are receiving or discontinuing medical therapy to restore bone mass, or have additional risk factors.
== END 2023-12-08 13:35 | disposition home or self-care (01) ==
LOC: HO.MAMMO 13:34
PROVIDERS: PCP Family Medicine; Visit Provider Family Medicine
DX: Z12.31 Encounter for screening mammogram for malignant neoplasm of breast (principal); Z13.820 Encounter for screening for osteoporosis; M85.80 Other specified disorders of bone density and structure, unspecified site; Z78.0 Asymptomatic menopausal state
CPT/HCPCS: 77063; 77067; 77080

== ENCOUNTER → 2023-12-08 14:00 | Outpatient (BNV) | payer MEDICAID, SELFPAY | PROVIDERS: PCP Family Medicine; Visit Provider Radiology Diagnostic Radiology | DX: Z12.31 Encounter for screening mammogram for malignant neoplasm of breast (principal) | CPT/HCPCS: 77063; 77067 ==

== ENCOUNTER 2024-01-11 10:06 | Outpatient (REF) | payer MEDICAID, SELFPAY | END 2024-01-11 10:07 | disposition home or self-care (01) | LOC: HO.HOSX 10:06 | PROVIDERS: Visit Provider Physician Assistant | DX: Z13.89 Encounter for screening for other disorder (principal) ==

== ENCOUNTER 2024-02-10 13:15 | Outpatient (AMB) | payer MEDICAID, SELFPAY ==
--- NOTE | 2024-02-10 13:17 | A.OFFVIS_ITS ---
Vital Signs 02/10/24 13:19 Height 5 ft 2 in Weight 187 lb BMI 34.2 BP 118/71 Blood Pressure Location Lt brachial Position Sitting Respiration 14 Pulse 92 Pulse Source Pulse Oximeter Pulse Oximetry (%) 98 Oxygen Delivery Method Room Air Intake Visit Reasons: CHRONIC LOW BACK PAIN Rectifying Attendant Required: Yes Rectifying Attendant Name: [id number] Dioncia Allergies codeine [CODEINE] Allergy (Intermediate, Verified 02/10/24 13:21) DIZZY, itching Penicillins [PENICILLINS] Allergy (Intermediate, Verified 02/10/24 13:21) RASH Medication List - Last Reviewed 02/10/24 by Gege Benson abacavir-lamivudine 600-300 mg (Epzicom) 1 tab PO DAILY aspirin (Adult Aspirin Regimen) 81 mg PO DAILY atorvastatin 40 mg PO BEDTIME bisacodyl (Dulcolax (bisacodyl)) 2 tabs qhs every night 3 days prior to colonoscopy orally bedtime; 3 days cholecalciferol (vitamin D3) 25 mcg PO QAM cholestyramine (with sugar) 4 gram 4 grams PO BID clonidine HCl 0.1 mg PO BEDTIME dulaglutide (Trulicity) 0.75 mg subcut QWEEK duloxetine (Cymbalta) 120 mg PO DAILY gabapentin 300 mg PO glipizide 10 mg PO BIDAC loratadine 10 mg PO DAILY lorazepam 1 mg PO DAILY PRN losartan 100 mg PO QAM melatonin 5 mg PO BEDTIME meloxicam 7.5 mg PO metformin ER 1,000 mg PO metoclopramide HCl (Reglan) 10 mg PO QIDACHS metoprolol tartrate 75 mg PO pantoprazole (Protonix) 40 mg PO DAILY 30 days peg 3350-electrolytes 236-22.74-6.74 -5.86 gram (Golytely) 240 mL PO Q10M 1 day raltegravir (Isentress) 400 mg PO BID tolterodine ER 2 mg PO QAM verapamil ER 360 mg PO DAILY HPI Comments Details: Patient presents back to the office today for evaluation management of her chronic lower back pain. Last visit here was over 3 years ago, she was then lost to follow-up. Endorses chronic diffuse pain from head to toe. Today the focuses her lower back. Three years ago underwent bilateral diagnostic medial branch blocks with good effect. She did not return for therapeutic injections or RFA discussion that was planned. Complaining of bilateral lower back pain for many years. Approximately 1 year ago started with pain down her right leg to the foot. Endorses burning, numbness and tingling of the right lower extremity. Pain is worse with walking, standing and lying down. Improves with rest. Currently taking meloxicam and gabapentin with some improvement. Denies any recent x-rays Denies recent trauma, fall or injury Denies red flag symptoms including new loss of bowel, bladder or saddle anesthesia Denies recent attempts at physical therapy, chiropractor, acupuncture, massage or injections. Pain today is rated as a 10/10, constant all day long In terms condition is described as throbbing, pounding, pinching, cramping, dull, sore, aching, tiring, shooting, stabbing, burning, tight, squeezing, tingling Pain is negatively impacting patient's enjoyment of life, general activity, sleep, walking, ability to care for herself, ability to perform activities of daily living. Patient is diabetic, she denies use of daily insulin. She does not know her most recent A1c. Denies implantable devices, pacemaker or defibrillator Denies current use of alcohol, tobacco, nicotine or illicit substances. Prior visit with Liya SCHNEIDER, 09/2020: Janey returns to the office with multiple pain generators. She had previously seen Critsina Conroy NP in 2019. At that time, she was encouraged to continue her regimen of NSAIDS, cymbalta and physical therapy. Since then, she has had worsening low back pain and her PCP had sent her for a lumbar spine MRI 04/2020. This revealed bilateral facet arthropathy of her L4-S1, without any neural foramen or central canal stenosis. She reports pain radiating down from her low back to her posterior thighs and occasionally to her ankles. States having intermittent numbness/tingling of bilateral feet due to diabetic neuropathy. She states her pain is worse with lumbar extension. Reports having urinary urgency, under the care of urologist. Denies any bowel dysfunction or saddle anesthesia. PRIOR: Janey presents as a referral from PCP Dr. Banks. Patient reports chronic whole body pain, including pain throughout entire back, arms, legs, and knees. She also states her fibromyalgia causes constant pain and makes activity difficult. She denies any surgical or trauma history to back. She had been treated at [facility] for her back pain at some point and received injections there that were not helpful. I do not have these records to review. She has also reportedly [place] [facility] [place]. She is on numerous medications for her multiple comorbidities including HIV, HTN, T2DM, atrial septal defect, asthma, fibromyalgia, depression, and anxiety disorder. She has a psychiatrist but not a therapist. She thinks she has been referred for a therapist. She uses NSAIDs and marijuana for pain. [facility] Medical History (Updated 02/10/24 @ 13:51 by Madelaine Fernandez, WELFARE SUPERVISOR, TELECOMMUNICATIONS TECHNICIAN) Pre-op examination Urinary incontinence Lower urinary tract symptoms COVID-19 Gallstones Colon cancer screening HTN (hypertension) HIV (human immunodeficiency virus infection) Surgical History H/O colonoscopy H/O esophagogastroduodenoscopy S/P excision of lipoma History of bladder suspension procedure History of tubal ligation H/O total hysterectomy History of cholecystectomy Social History Alcohol intake: current Alcohol intake frequency: does not drink Patient Tobacco Use Status: Never used Tobacco Substance Use Type: Marijuana Advance Directives Date on File: 08/12/21 Review of Systems Const All systems reviewed & are unremarkable except as noted in HPI and below Physical Exam Vital Signs: Last Vital Signs Pulse 92 02/10/24 13:19 Resp 14 02/10/24 13:19 BP 118/71 02/10/24 13:19 Pulse Ox 98 02/10/24 13:19 Oxygen Delivery Method Room Air 02/10/24 13:19 BMI result Body Mass Index 34.2 General: awake, alert, oriented. Answers questions appropriately. Fully engaged in examination. Skin: warm, dry, intact HEENT: Normocephalic. Hearing intact. Cardiac: External chest normal in appearance. Respiratory: No cough, audible wheezing or stridor. Abdomen: without gross distension. MS: No obvious swelling or deformities. Able to stand on bilateral tiptoes and bilateral heels.? Able to transition from sit to stand unassisted. Ambulates with bilaterally normal heel strike and toe off Tenderness over midline lumbar vertebrae and lumbar paraspinal muscles Flexion to 60 degrees, extension to 10 degrees. Pain with flexion Facet loading positive SLR positive on the right Negative footdrop, negative clonus DTRs intact Neurological: Oriented to person, place, time and situation. Thought process intact. No gait abnormalities appreciated. Psychiatric: Appropriate mood and affect. Good judgment and insight. Assessment & Plan Assessment & Plan (1) Facet arthropathy, lumbosacral: Code(s): M47.817 - Spondylosis without myelopathy or radiculopathy, lumbosacral region Category: Medical (2) Myofascial low back pain: Code(s): M54.50 - Low back pain, unspecified Category: Medical Plan X-ray lumbar spine ordered for evaluation EMG ordered to evaluate for right lower extremity neuropathy Order placed for PT eval and treat If no improvement with PT plan for MRI lumbar spine without contrast. Continue with meloxicam as prescribed All questions and concerns were answered, patient agrees with the plan. Follow up after PT, sooner if needed Orders: Orders XR lumbar spine 4V min Today M47.817 - Spondylosis without myelopathy or radiculopathy, lumbosacral region NE electromyogram (EMG) Today M54.16 - Radiculopathy, lumbar region PT Evaluation and Treatment Today M54.50 - Low back pain, unspecified Medications: New cholecalciferol (vitamin D3) 25 mcg PO QAM meloxicam 7.5 mg PO Coding Level of Care Code New Pt Level 4 (87667) Diagnoses Facet arthropathy, lumbosacral M47.817 Myofascial low back pain M54.50
[2024-02-10 13:19] VITALS: BP 118/71; PULSE 92; RESP 14; O2SAT 98; BMI 34.2
== END 2024-02-10 13:46 | disposition home or self-care (01) ==
PROVIDERS: PCP Family Medicine; Referring Provider Family Medicine; Visit Provider Registered Nurse Emergency
DX: M47.817 Spondylosis without myelopathy or radiculopathy, lumbosacral region (principal); M54.50 Low back pain, unspecified
CPT/HCPCS: 99204

== ENCOUNTER 2024-02-10 13:15 | Outpatient (REF) | payer MEDICAID, SELFPAY ==
--- NOTE | ~2024-02-10 | XR_ITS ---
EXAMINATION: XR LUMBOSACRAL SPINE WITH OBLIQUES CLINICAL INFORMATION: Spondylosis without myelopathy or radiculopathy COMPARISON: MR lumbar spine 05/02/2020. TECHNIQUE: AP, both oblique, and lateral views of the lumbar spine. Lateral view of the lumbosacral junction. FINDINGS: There are 5 nonrib-bearing lumbar type vertebra. No evidence of acute fracture or malalignment. New minimal, 3 mm anterolisthesis of L4 on L5. Vertebral body heights are maintained. Disc spaces are preserved. Moderate L4-L5 and severe L5-S1 facet arthropathy, more pronounced on the right. Surgical clips overlie the right upper abdomen. Aortoiliac calcific atherosclerosis. Soft tissues are otherwise unremarkable. XR/XR lumbar spine 4V min IMPRESSION: Moderate L4-L5 and severe L5-S1 facet arthropathy, more pronounced on the right, with new minimal anterolisthesis of L4 on L5.
== END 2024-02-10 13:16 | disposition home or self-care (01) ==
LOC: HO.XRAY 13:15
PROVIDERS: PCP Family Medicine; Referring Provider Family Medicine; Visit Provider Registered Nurse Emergency
DX: M47.817 Spondylosis without myelopathy or radiculopathy, lumbosacral region (principal)
CPT/HCPCS: 72110; 99212

== ENCOUNTER 2024-04-15 10:21 | Outpatient (REF) | payer MEDICAID, SELFPAY ==
[2024-04-15 12:15] LABS: Creatinine Urine 78.18 mg/dL; Microalbum/Creatinine Ratio Ur 63.9 ug/mg cr (<30)
[2024-04-15 12:24] LABS: Alanine Aminotransferase 22 U/L (0-31); Albumin Level 3.9 g/dL (3.5-5.0); Alkaline Phosphatase 102 U/L (39-117); Anion Gap 13 (12-20); Aspartate Amino Transferase 11 U/L (5-31); Bilirubin Total 0.2 mg/dL (0.0-1.0); Blood Urea Nitrogen 11 mg/dL (9-16); Calcium 9.6 mg/dL (8.4-10.2); Carbon Dioxide 24 mmol/L (22-29); Chloride 109 mmol/L (96-108); Cholesterol 147 mg/dL (<200); Estimated Glomerular Filt Rate > 60; Glucose Random 150 mg/dL (60-115); HDL Cholesterol 44 mg/dL (>40); LDL Cholesterol Calculated 55 mg/dL (<100); Potassium 4.7 mmol/L (3.3-5.1); Sodium 141 mmol/L (135-145); Triglycerides 240 mg/dL (<150)
[2024-04-15 15:51] LABS: Reflex LDLD? No
== END 2024-04-15 10:22 | disposition home or self-care (01) ==
LOC: HO.HHCL 10:21
PROVIDERS: Visit Provider Family Medicine
DX: E11.69 Type 2 diabetes mellitus with other specified complication (principal)
CPT/HCPCS: 36415; 80053; 80061; 82043; 82570

== ENCOUNTER 2024-05-09 15:18 | Outpatient (REF) | payer MEDICAID, SELFPAY ==
[2024-05-09 16:38] LABS: MANUAL DIFF FLAG NO
[2024-05-09 16:55] LABS: Basophils Absolute Auto 0.1 X10*3/uL (0.0-0.2); Basophils Percent Auto 0.8 % (0-2); Eosinophils Absolute Auto 0.3 X10*3/uL (0.0-0.4); Eosinophils Percent Auto 2.4 % (0-4); Hematocrit 38.3 % (37.0-47.0); Imm Gran Abs Auto 0.05 X10*3/uL (0.00-0.03); Imm Gran Pct Auto 0.4 % (0.0-0.4); Lymphocytes Absolute Auto 4.8 X10*3/uL (1.2-4.9); Lymphocytes Percent Auto 36.5 % (20-40); Mean Corpuscular HGB Conc 33.9 g/dl (31.0-35.0); Mean Corpuscular Hemoglobin 35.3 pg (27.0-33.0); Mean Corpuscular Volume 104.1 fL (80.0-98.0); Mean Platelet Volume 11.3 fL (9.4-12.3); Monocytes Absolute Auto 0.8 X10*3/uL (0.1-1.2); Monocytes Percent Auto 6.4 % (2-11); Neutrophils Absolute Auto 7.1 x10*3/uL (2.0-8.3); Neutrophils Percent Auto 53.5 % (45-73); Platelet Count 282 X10*3/uL (160-400); Red Blood Count 3.68 X10*6/uL (4.20-5.50); Red Cell Distribution Width 14.5 % (11.0-16.0); White Blood Count 13.2 X10*3/uL (4.8-10.8)
[2024-05-09 17:18] LABS: Alanine Aminotransferase 20 U/L (0-31); Albumin Level 4.2 g/dL (3.5-5.0); Alkaline Phosphatase 94 U/L (39-117); Anion Gap 17 (12-20); Aspartate Amino Transferase 15 U/L (5-31); Bilirubin Total 0.2 mg/dL (0.0-1.0); Blood Urea Nitrogen 25 mg/dL (9-16); Calcium 9.9 mg/dL (8.4-10.2); Carbon Dioxide 22 mmol/L (22-29); Chloride 108 mmol/L (96-108); Cholesterol 112 mg/dL (<200); Estimated Glomerular Filt Rate 37; Glucose Random 168 mg/dL (60-115); HDL Cholesterol 28 mg/dL (>40); LDL Cholesterol Calculated 38 mg/dL (<100); Potassium 3.9 mmol/L (3.3-5.1); Sodium 143 mmol/L (135-145); Total Protein 7.4 g/dL (6.5-8.0); Triglycerides 230 mg/dL (<150)
[2024-05-09 18:01] LABS: Reflex LDLD? No
[2024-05-10 04:42] LABS: CT PCR NOT DETECTED (Not Detect.); NG PCR NOT DETECTED (Not Detect.)
[2024-05-10 08:30] LABS: HBS Num1 19.96 mIU/mL (0-7.99); HBc Num1 0.11 S/CO (0.00-0.79); HBsAGNum1 0.28 S/CO (0.00-0.99); Hepatitis B Core Antibody Nonreactive (Nonreactive); Hepatitis B Surface Antigen Negative (Negative); ~Hepatitis B Surface Antibody REACTIVE (Nonreactive)
[2024-05-10 08:33] LABS: Hepatitis A Antibody IgG REACTIVE (Nonreactive); ~Hepatitis A Antibody IgG 11.46 S/CO (0.00-0.99)
[2024-05-10 08:54] LABS: Syphilis Screen Nonreactive (Nonreactive)
[2024-05-11 09:24] LABS: HIV RNA PCR Qn Copies 23 copies/mL (NOT DETECTED); HIV RNA PCR Qn Log Copies 1.36 (NOT DETECTED)
[2024-05-12 17:14] LABS: Absolute CD3 Count 3672 cells/uL (840-3060); Absolute CD4 Count 1832 cells/uL (490-1740); Absolute CD8 Count 1978 cells/uL (180-1170); Absolute Lymphocytes 4916 cells/uL (850-3900); CD4 CD8 Ratio 0.93 (0.86-5.00); Percent CD3 Cells 75 % (57-85); Percent CD4 Cells 37 % (30-61); Percent CD8 Cells 40 % (12-42)
== END 2024-05-09 15:19 | disposition home or self-care (01) ==
LOC: HO.HHCL 15:18
PROVIDERS: Visit Provider Internal Medicine
DX: B20 Human immunodeficiency virus [HIV] disease (principal)
CPT/HCPCS: 36415; 80053; 80061; 85025; 86359; 86360; 86704; 86706; 86708; 86780; 87340; 87491; 87536; 87591

== ENCOUNTER 2024-10-03 09:59 | Outpatient (REF) | payer MEDICAID, SELFPAY ==
--- OUTSIDE RECORDS SUMMARY | 2024-10-03 11:03 | XMS_ITS | Clinical Summary ---
Author Organization [facility] ity Address [address] [place] [address] Care Team Providers Care Travel Writer Name Role Phone Unavailable Primary Care Provider Unavailabl e Social History Tobacco Use Types Packs/Day Years Used Date Smoking Tobacco: Never Assessed Comments Unknown Sex and Gender Information Value Date Recorded Sex Assigned at Not on file Legal Sex Female 11:28 PM EST Gender Identity Not on file Sexual Orientation Not on file Plan of Treatment Health Maintenance Due Date Last Done Comments Breast Cancer Screening 1960 DTaP,Tdap,and Td Vaccines (1 - Tdap) 1979 Cervical Cancer Screening: P ap Smear 1981 Pneumococcal Vaccine: 50+ Ye ars (1 of 1 - PCV) 2010 Zoster Vaccines (1 of 2) 2010 COVID-19 Vaccine ( - 2023-2 5 season) 2024 Influenza Vaccine (#1) 2024 RSV Immunization Patients 60 + Years Old (1 - 1-dose 75+ series) 2035 HIB Vaccines Aged Out No longer eligi ble based on patient's age to complete this topic HPV Vaccines Aged Out No longer eligi ble based on patient's age to complete this topic Hepatitis A Vaccines Aged Out No long er eligible based on patient's age to complete this topic Hepatitis B Vaccines Aged Out No long er eligible based on patient's age to complete this topic IPV Vaccines Aged Out No longer eligi ble based on patient's age to complete this topic MMR Vaccines Aged Out No longer eligi ble based on patient's age to complete this topic Meningococcal ACWY Vaccine Aged Out N o longer eligible based on patient's age to complete this topic Meningococcal B Vacine Aged Out No lo nger eligible based on patient's age to complete this topic Pneumococcal Vaccine: Pediat rics (0 to 5 Years) and At-Risk Patients (6 to 64 Years) Aged Out No longer eligible b ased on patient's age to complete this topic RSV Immunization Patients Un francis 20 months Aged Out No longer eligible b ased on patient's age to complete this topic Varicella Vaccines Aged Out No longer eligible based on patient's age to complete this topic
[2024-10-03 11:18] LABS: MANUAL DIFF FLAG NO
[2024-10-03 11:21] LABS: Basophils Absolute Auto 0.1 X10*3/uL (0.0-0.2); Basophils Percent Auto 0.8 % (0-2); Eosinophils Absolute Auto 0.5 X10*3/uL (0.0-0.4); Eosinophils Percent Auto 2.9 % (0-4); Hematocrit 37.4 % (37.0-47.0); Hemoglobin 12.6 g/dl (12.0-16.0); Imm Gran Abs Auto 0.08 X10*3/uL (0.00-0.03); Imm Gran Pct Auto 0.5 % (0.0-0.4); Lymphocytes Absolute Auto 4.4 X10*3/uL (1.2-4.9); Lymphocytes Percent Auto 27.4 % (20-40); Mean Corpuscular HGB Conc 33.7 g/dl (31.0-35.0); Mean Corpuscular Hemoglobin 34.7 pg (27.0-33.0); Mean Platelet Volume 10.9 fL (9.4-12.3); Monocytes Absolute Auto 1.1 X10*3/uL (0.1-1.2); Monocytes Percent Auto 7.1 % (2-11); Neutrophils Absolute Auto 9.8 x10*3/uL (2.0-8.3); Neutrophils Percent Auto 61.3 % (45-73); Platelet Count 357 X10*3/uL (160-400); Red Blood Count 3.63 X10*6/uL (4.20-5.50); Red Cell Distribution Width 13.3 % (11.0-16.0)
[2024-10-03 12:11] LABS: TSH reflex Free T4 1.96 uIU/mL (0.32-4.0)
[2024-10-03 12:37] LABS: Alanine Aminotransferase 14 U/L (0-31); Alkaline Phosphatase 85 U/L (39-117); Anion Gap 14 (12-20); Aspartate Amino Transferase 19 U/L (5-31); Bilirubin Total 0.3 mg/dL (0.0-1.0); Blood Urea Nitrogen 13 mg/dL (9-16); Calcium 9.5 mg/dL (8.4-10.2); Carbon Dioxide 25 mmol/L (22-29); Chloride 108 mmol/L (96-108); Estimated Glomerular Filt Rate > 60; Glucose Random 192 mg/dL (60-115); Potassium 3.6 mmol/L (3.3-5.1); Sodium 143 mmol/L (135-145); Total Protein 7.7 g/dL (6.5-8.0)
[2024-10-04 15:58] LABS: MRSA Nasal PCR NEGATIVE (Negative); SA Nasal PCR NEGATIVE (Negative)
[2024-10-06 17:33] LABS: HIV RNA PCR Qn Copies NOT DETECTED copies/mL (NOT DETECTED); HIV RNA PCR Qn Log Copies NOT DETECTED (NOT DETECTED)
[2024-10-07 20:33] LABS: Absolute CD3 Count 3184 cells/uL (840-3060); Absolute CD4 Count 1675 cells/uL (490-1740); Absolute CD8 Count 1570 cells/uL (180-1170); Absolute Lymphocytes 4089 cells/uL (850-3900); CD4 CD8 Ratio 1.07 (0.86-5.00); Percent CD3 Cells 78 % (57-85); Percent CD4 Cells 41 % (30-61); Percent CD8 Cells 38 % (12-42)
== END 2024-10-03 10:00 | disposition home or self-care (01) ==
LOC: HO.HHCL 09:59
PROVIDERS: Internal Medicine; Visit Provider Family Medicine
DX: Z21 Asymptomatic human immunodeficiency virus [HIV] infection status (principal); E04.9 Nontoxic goiter, unspecified; Z11.2 Encounter for screening for other bacterial diseases
CPT/HCPCS: 36415; 80053; 84443; 85025; 86359; 86360; 87536; 87640; 87641

== ENCOUNTER → 2025-01-05 11:30 | Outpatient (BNV) | payer MEDICAID, SELFPAY | PROVIDERS: PCP Family Medicine; Visit Provider Internal Medicine | DX: Z12.31 Encounter for screening mammogram for malignant neoplasm of breast (principal) | CPT/HCPCS: 77063; 77067 ==

== ENCOUNTER 2025-01-05 11:33 | Outpatient (REF) | payer MEDICAID, SELFPAY ==
--- OUTSIDE RECORDS SUMMARY | 2025-01-05 11:54 | XMS_ITS | Clinical Summary ---
Author Organization [facility] ity Address [address] [place] [address] Care Team Providers Care Property Loss Insurance Claim Adjuster Name Role Phone Unavailable Primary Care Provider [...] - 2023-2 5 season) 2024 Influenza Vaccine (Season Ended) 2025 RSV Immunization Adult Patie nts (1 - 1-dose 75+ series) 2035 HIB [...] age to complete this topic Meningococcal B Vaccine Aged Out No l onger eligible based on patient's age to complete [...]
== END 2025-01-05 11:34 | disposition home or self-care (01) ==
LOC: HO.MAMMO 11:33
PROVIDERS: PCP Family Medicine; Visit Provider Family Medicine
DX: Z12.31 Encounter for screening mammogram for malignant neoplasm of breast (principal)
CPT/HCPCS: 77063; 77067